=== PATIENT | female | born 1950 | race Caucasian/White ===

== ENCOUNTER → 2016-12-13 | Outpatient (CLI) | payer BC ==
--- NOTE | 2016-12-14 07:42 | MAMMOGRAPHY REPORT ---
BILATERAL DIGITAL SCREENING MAMMOGRAM WITH CAD: 12/13/2016 CLINICAL HISTORY: Routine screening. Patient has no complaints. TECHNIQUE: Current study was also evaluated with a Computer Aided Detection (CAD) system. Bilatera l CC and MLO views were obtained. COMPARISON: Comparison is made to exams dated: 11/08/2015 mammogram, 10/29/2014 mammogram, 10/05/2013 m ammogram, 08/24/2011 mammogram - [facility], 03/18/2008, and 11/25/2002 mammogram - [facility]. BREAST COMPOSITION: There are scattered areas of fibroglandular density in both breasts. FINDINGS: No suspicious masses, calcifications, or areas of architectural distortion are noted in e ither breast. There has been no significant interval change compared to prior exams. Scattered bilat eral benign-appearing calcifications are not significantly changed. IMPRESSION: ACR BI-RADS CATEGORY 2: BENIGN There is no mammographic evidence of malignancy. A 1 year screening mammogram is recommended. The p atient will receive written notification of the results. Approximately 10% of breast cancers are not detected with mammography. A negative mammographic repor t should not delay biopsy if a clinically suggestive mass is present. Kiesha Thomas M.D. /:12/13/2016 14:57:58 Building Inspector: Doretha TURNER)(), [facility] letter sent: Normal 1/2 BI-RADS Code: ACR BI-RADS Category 2: Benign
== END | disposition home or self-care (01) ==
LOC: C.MAMM 09:18
PROVIDERS: ATTEND Obstetrics & Gynecology
DX: Z12.31 Encounter for screening mammogram for malignant neoplasm of breast (principal)

== ENCOUNTER → 2018-01-06 | Outpatient (CLI) | payer OTHER | END | disposition home or self-care (01) | LOC: C.MAMM 15:13 | PROVIDERS: ATTEND Family Medicine | DX: Z00.00 Encounter for general adult medical examination without abnormal findings (principal); E21.3 Hyperparathyroidism, unspecified; E83.52 Hypercalcemia ==

== ENCOUNTER 2023-07-08 07:37 | Observation (INO) ==
--- NOTE | 2023-05-30 11:11 | PAT Medication Instructions ---
Medication Instructions Date of Service May 30, 2023 Home Medications atorvastatin 40 mg tablet 40 mg PO HS levothyroxine 100 mcg tablet (Synthroid) 100 mcg PO 6XWK cholecalciferol (vitamin D3) 125 mcg (5,000 unit) tablet (Vitamin D3) 125 mcg PO QAM duloxetine 30 mg capsule,delayed release 30 mg PO HS duloxetine 60 mg capsule,delayed release 60 mg PO QAM famotidine 20 mg tablet 20 mg PO QAM fish, borage, flaxseed oils-omega 3,6,9 comb no.1 1,200 mg capsule ([place] 3-6-9) 1 cap PO QAM fluticasone propionate 50 mcg/actuation nasal spray,suspension (Flonase Allergy Relief) 1 spray intranasal HS glucosam 750 mg-chondroi 100 mg-hyalur 1.65 mg-CF borate 108 mg tablet ([facility] Air Button) 1 tab PO QAM levocetirizine 5 mg tablet 5 mg PO QAM meloxicam 7.5 mg tablet 7.5 - 15 mg PO QAM vit C 250 mg-vit E 90 mg-zinc 40 mg-copper 1 [id number] capsule (PreserVision AREDS-2) 1 tab PO BID Continue as directed levothyroxine 100 mcg tablet (Synthroid) 100 mcg PO 6XWK ASK your surgeon for instructions meloxicam 7.5 mg tablet 7.5 - 15 mg PO QAM STOP taking 2 weeks before surgery fish, borage, flaxseed oils-omega 3,6,9 comb no.1 1,200 mg capsule ([place] 3-6-9) 1 cap PO QAM glucosam 750 mg-chondroi 100 mg-hyalur 1.65 mg-CF borate 108 mg tablet ([facility] Air Button) 1 tab PO QAM vit C 250 mg-vit E 90 mg-zinc 40 mg-copper 1 [id number]-cbhepr capsule (PreserVision AREDS-2) 1 tab PO BID DO NOT take the morning of surgery cholecalciferol (vitamin D3) 125 mcg (5,000 unit) tablet (Vitamin D3) 125 mcg PO QAM levocetirizine 5 mg tablet 5 mg PO QAM Take morning of surgery With a small sip of water, OTHERWISE NOTHING TO EAT OR DRINK AFTER MIDNIGHT: duloxetine 60 mg capsule,delayed release 60 mg PO QAM famotidine 20 mg tablet 20 mg PO QAM Take evening before surgery atorvastatin 40 mg tablet 40 mg PO HS duloxetine 30 mg capsule,delayed release 30 mg PO HS fluticasone propionate 50 mcg/actuation nasal spray,suspension (Flonase Allergy Relief) 1 spray intranasal HS Other Notes If you have any questions please call us at [phone] or [phone] or [phone] or [phone]
--- NOTE | 2023-06-19 11:09 | Anesthesiology Consultation ---
Date of Service June 19, 2023 Assessment & Plan (1) Encounter for pre-operative examination: - Outpatient joint assessment: Patient is currently scheduled for inpatient pathway. If re-evaluated and patient/surgeon requests outpatient pathway, patient is acceptable candidate for outpatient joint program from anesthesia standpoint pending surgeon's office assessment of pt motivation/support/completion of same day joint program preop requirements. Chart Review Chart Review: Acceptable Risk for Surgery and Patient seen in Pre Admission Testing Teaching & Discussion Pre-Anesthesia Teaching/Discussion Notes: Instructed NPO after midnight before surgery, except medications with 15 cc of water. Medication instructions provided according to the PAT guidelines. History Surgery Operation Date: 07/08/23 08:15 Proposed Procedures p Right Unicompartment Knee Arthroplasty, vs Right Total Knee Arthroplasty - Bebo Carty DO Height/Weight Height: 5 ft 4 in Weight: 81.2 kg Allergies Allergy/AdvReac Type Severity Reaction Status Date / Time pseudoephedrine Allergy Intermediate "very Verified 05/29/23 10:03 [From Sudafed] rapid heart rate" tetracycline Allergy Unknown Unknown Verified 05/29/23 10:03 Medications Home Medications Medication Instructions Recorded Confirmed Last Taken atorvastatin 40 mg tablet 40 mg PO HS 02/20/21 05/29/23 Unknown levothyroxine 100 mcg tablet 100 mcg PO 6XWK 02/20/21 05/29/23 Unknown (Synthroid) cholecalciferol (vitamin D3) 125 125 mcg PO QAM 05/29/23 05/29/23 Unknown mcg (5,000 unit) tablet (Vitamin D3) duloxetine 30 mg capsule,delayed 30 mg PO HS 05/29/23 05/29/23 Unknown release duloxetine 60 mg capsule,delayed 60 mg PO QAM 05/29/23 05/29/23 Unknown release famotidine 20 mg tablet 20 mg PO QAM 05/29/23 05/29/23 Unknown fish, borage, flaxseed oils-omega 1 cap PO QAM 05/29/23 05/29/23 Unknown 3,6,9 comb no.1 1,200 mg capsule ([place] 3-6-9) fluticasone propionate 50 1 spray intranasal HS 05/29/23 05/29/23 Unknown mcg/actuation nasal spray,suspension (Flonase Allergy Relief) glucosam 750 mg-chondroi 100 1 tab PO QAM 05/29/23 05/29/23 Unknown mg-hyalur 1.65 mg-CF borate 108 mg tablet ([employer]) levocetirizine 5 mg tablet 5 mg PO QAM 05/29/23 05/29/23 Unknown meloxicam 7.5 mg tablet 7.5 - 15 mg PO QAM 05/29/23 05/29/23 Unknown vit C 250 mg-vit E 90 mg-zinc 40 1 tab PO BID 05/29/23 05/29/23 Unknown mg-copper 1 [id number] capsule (PreserVision AREDS-2) Past Medical History Medical History (Updated 06/19/23 @ 11:14 by Abril Espinal PA-C) Depression GERD (gastroesophageal reflux disease) controlled, stable per pt Hypothyroidism Macular degeneration Patient denies h/o stroke, seizures, heart attack, heart failure, DM, HTN, blood clots/DVTs or blood transfusions. Exercise / Class Metabolic Activity II 4-5 Yardwork/Stairs/Walk up hill (denies chest discomfort or shortness of breath with 1 FOS) Past Family History Family History Other No family history of adverse response to anesthesia Past Surgical History Surgical History History of colonoscopy History of dilatation and curettage [place] [facility] [place] due to extreme depression "they removed 3 of the 4" History of wisdom tooth extraction Past Anesthesia History No Hx of Anesthesia Complications and No Family Hx of Anesthesia Complications History of PONV No Hx of PONV and No Hx of Motion Sickness Social History Smoking Status: Never smoker Do You Dip or Chew Tobacco: No Hx Alcohol Use: Yes Alcohol type: beer and wine alcohol intake frequency: a few times a week Hx Substance Use: No substance use type: does not use Review of Systems Snoring, denies witnessed apneas. Patient denies chest pain, shortness of breath, dyspnea on exertion, fever, chills, cough, wheezing, or palpitations. Physical Exam Vital Signs Vitals BP 117/79 P 87 TEMP 98.1 SP02 100% on RA RESP 17 Physical Patient resting comfortably in chair in no acute distress, alert and oriented, responding appropriately throughout visit Full cervical extension range of motion without pain TMD 3.5 finger breadths Mallampati Score 2 Dentition: several caps/crowns, denies chipped or loose teeth, implants or bridges Lungs: normal respiratory effort. Good air movement, clear throughout to auscultation, no adventitious breath sounds Cardiac: regular rate and rhythm, no murmurs noted Carotid arteries: negative bruit bilat Lab Results Anesthesia Preop Results Results Anesthesia Widget: WBC 5.08 K/ul (4.8-10.8) 06/19/23 Hgb 14.4 g/dl (12.0-16.0) 06/19/23 Hct 42.2 % (37.0-47.0) 06/19/23 Plt 247 K/uL (130-400) 06/19/23 Na 134 mmol/L (136-145) L 06/19/23 K 3.8 mmol/L (3.5-5.1) 06/19/23 Cl 101 mmol/L (98-107) 06/19/23 CO2 28 mmol/L (21-32) 06/19/23 BUN 12 mg/dl (6-23) 06/19/23 Creat 0.72 mg/dl (0.6-1.2) 06/19/23 Glucose Level 91 mg/dl (70-99(Fasting)) 06/19/23 PT 11.0 Seconds (9.0-12.0) 06/19/23 PTT 26.2 Seconds (21.0-31.0) 06/19/23 INR 1.0 (0.9-1.1) 06/19/23 Blood Type AB Positive 06/19/23 Antibody Screen NEGATIVE 06/19/23 Testing Electrocardiogram Date: 06/19/23 NSR, rate [address] abnormality Chest X-Ray Date: 06/19/23 No acute process.
--- NOTE | 2023-07-04 06:56 | History & Physical Report ---
Date of Service July 04, 2023 Assessment & Plan (1) Right knee DJD: We will proceed with a right partial knee replacement surgery. Postoperatively she will be started on aspirin for DVT prophylaxis and kept overnight in the hospital for postop medical management. She plans to use fit for play at home upon discharge. History of Present Illness Chief Complaint: Medial compartment arthritis of the right knee. Primary Care Provider: NUZHAT Gilliam Miya is a pleasant 72-year-old female who is well known to me. She has been dealing with chronic increasing right knee pain. MRI and clinical examination were diagnostic for medial compartmental arthritis of the right knee. After failing conservative treatment, she has elected proceed with a right partial knee replacement surgery. Allergies Allergy/AdvReac Type Severity Reaction Status Date / Time pseudoephedrine Allergy Intermediate "very Verified 05/29/23 10:03 [From Sudafed] rapid heart rate" tetracycline Allergy Unknown Unknown Verified 05/29/23 10:03 Home Medications Medication Instructions Recorded Confirmed Type atorvastatin 40 mg tablet 40 mg PO HS 02/20/21 05/29/23 History levothyroxine 100 mcg tablet 100 mcg PO 6XWK 02/20/21 05/29/23 History (Synthroid) cholecalciferol (vitamin D3) 125 125 mcg PO QAM 05/29/23 05/29/23 History mcg (5,000 unit) tablet (Vitamin D3) duloxetine 30 mg capsule,delayed 30 mg PO HS 05/29/23 05/29/23 History release duloxetine 60 mg capsule,delayed 60 mg PO QAM 05/29/23 05/29/23 History release famotidine 20 mg tablet 20 mg PO QAM 05/29/23 05/29/23 History fish, borage, flaxseed oils-omega 1 cap PO QAM 05/29/23 05/29/23 History 3,6,9 comb no.1 1,200 mg capsule ([place] 3-6-9) fluticasone propionate 50 1 spray intranasal HS 05/29/23 05/29/23 History mcg/actuation nasal spray,suspension (Flonase Allergy Relief) glucosam 750 mg-chondroi 100 1 tab PO QAM 05/29/23 05/29/23 History mg-hyalur 1.65 mg-CF borate 108 mg tablet ([employer]) levocetirizine 5 mg tablet 5 mg PO QAM 05/29/23 05/29/23 History meloxicam 7.5 mg tablet 7.5 - 15 mg PO QAM 05/29/23 05/29/23 History vit C 250 mg-vit E 90 mg-zinc 40 1 tab PO BID 05/29/23 05/29/23 History mg-copper 1 [id number] capsule (PreserVision AREDS-2) Past Med/Surg History Medical History Depression GERD (gastroesophageal reflux disease) controlled, stable per pt Hypothyroidism Macular degeneration Surgical History History of colonoscopy History of dilatation and curettage History of parathyroidectomy 06/2018 @ [facility] [place] due to extreme depression "they removed 3 of the 4" History of wisdom tooth extraction Family History Other No family history of adverse response to anesthesia Social History Smoking Status: Never smoker Second Hand Exposure: No; Do You Dip or Chew Tobacco: No; Hx Alcohol Use: Yes Alcohol type: beer and wine Hx Substance Use: No Preferred Language: Bol[place]ian Communication Ability: Effective 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 Physical Exam On physical examination the right knee, she has tenderness palpation of the distal medial femoral condyle and over the medial joint line.. Constitutional WD/WN, vitals as above Eyes PERRL, conjunctivae normal, anicteric sclerae ENMT external ear and nose normal, oropharynx normal Neck trachea midline, no thyromegaly Respiratory normal respiratory effort, lungs clear to auscultation Cardiovascular RRR, no murmur, no edema Gastrointestinal (Abdomen) normal bowel sounds, soft, nontender, no hepatosplenomegaly Skin no rashes, warm and dry Psychiatric A+Ox3, euthymic affect Results & Data Results & Data Laboratory Results . Diagnostic Findings X-rays and MRI of the right knee do show medial compartmental arthritis. I do not see any chondral changes in the lateral compartment or the patellofemoral compartment.. PG Care Time/CCT Total # of Minutes Spent Total Time Spent with Patient: Total time spent is greater than 50% in coordination of care (as documented) at patient's floor/unit and/or counseling patient: Coding Level of Care Code None Diagnoses Right knee DJD M17.11
[~2023-07-08 07:37] MED LIST: ACETAMINOPHEN 500 MG TAB PO SCH; BUPIVACAINE 0.5 % 5 MG/1 ML PF 10ML VIAL ONE; DEXAMETHASONE SOD INJ 4 MG/ML VIAL ONE; FAMOTIDINE 20 MG TAB PO SCH; GABAPENTIN 300 MG CAP PO SCH; LIDOCAINE 2% 2 ML VIAL/AMP(20MG/ML) INFIL ONE; LR 500ML BOLUS, THEN 15ML/HR IV SCH; LR 60ML/HR IV SCH; MIDAZOLAM HCL 1 MG/ML 2ML VIAL ONE; ONDANSETRON INJ 2 MG/ML 2 ML VIAL ONE; ORTHO JOINT MIX INFIL SCH; PROPOFOL IV EMULSION 10 MG/ML 20 ML VIAL IV ONE; ROPIVACAINE 0.5% 5 MG/ML 30 ML VIAL ONE; TRANEXAMIC ACID 1,000 MG **IV Intra-op IV SCH; TRANEXAMIC ACID 1,000 MG **IV Pre-op IV SCH; ceFAZolin 2000MG 2,000 MG/15 ML SYR IV SCH; dexAMETHasone 4 MG TAB PO SCH; fentaNYL citrate PF 100 MCG/2 ML VIAL ONE
[2023-07-08] MEDS ORDERED: MIDAZOLAM HCL 1 MG/ML 2ML VIAL ONE (07:54)
--- NOTE | 2023-07-08 08:23 | History & Physical Bridge Note ---
Date of Service July 08, 2023 History & Physical Bridge Note I have examined the patient, reviewed the History & Physical and in the interval since the performance of the History & Physical I have noted the following changes of clinical significance: no changes noted
[2023-07-08] MEDS ORDERED: fentaNYL citrate PF 100 MCG/2 ML VIAL IV PRN (08:46)
[2023-07-08] MEDS ORDERED: ATROPINE SULFATE 0.1 MG/ML 10ML SYR IV PRN (08:46)
[2023-07-08] MEDS ORDERED: ONDANSETRON INJ 2 MG/ML 2 ML VIAL IV PRN ×2 (08:46→14:50)
[2023-07-08] MEDS ORDERED: ePHEDrine sulfate 50 MG/ML AMP IV PRN (08:46)
[2023-07-08] MEDS ORDERED: ORTHO JOINT ANESTHETIC ONE (08:56)
[2023-07-08] MEDS ORDERED: PROPOFOL IV EMULSION 10 MG/ML 20 ML VIAL IV ONE ×3 (09:33)
--- NOTE | 2023-07-08 10:41 | Operative Report ---
PG Post Operative Report Pre & Post Diagnosis Operation Date: 07/08/23 09:00 Pre-Op Diagnosis: Degenerative Joint Disease Right Knee Post-Op Diagnosis: Degenerative Joint Disease Right Knee I identified the patient and participated in the time-out.: Yes Procedure Operation Date: 07/08/23 09:00 Actual Procedures p Right Unicompartment Knee Arthroplasty(Right) - Bebo Carty DO Surgeon Bebo Carty DO Biometrics Experimentalist Bebo Crump PA-C Estimated Blood Loss 30 Findings Consistent with Post-Op Diagnosis Specimens Right femoral tibial bone Description of Procedure Implants used: I used a [employer] persona partial knee replacement system with a size 4 femur, a size E tibia, and an 8 mm polyethylene insert. On July 08, 2023 Miya arrived at [facility] for the above procedure. She was seen in the preoperative holding area and the operative extremity identified and signed. She is given a preoperative antibiotic, a regional anesthetic, and a spinal anesthetic. She was taken back the operating room and laid on the table in supine position. She was given basic sedation. The right knee was prepped and draped sterile fashion. A timeout was done. The patient and the operative extremity was properly identified. A longitudinal incision was made just medial to the patella. Dissection was taken down to the extensor mechanism. A small mid vastus arthrotomy was used. A little bit of the medial retinaculum was released. A small amount of fat pad was removed. There was no cartilage damage in the lateral compartment and the ACL was intact. There was significant arthritis in the medial compartment. A decision was made to do a partial knee replacement. The medial meniscus was excised. A proximal tibial guide was placed and the proximal tibia was resected on the medial side. The knee was then brought out full extension. A distal femoral cutting block was placed. The distal femur was then resected. The knee was then flexed. A size 4 femoral implant seem to be this best fit. The cutting block was pinned in the place. 2 peg holes were drilled. Posterior and chamfer cuts were then made. The tibia was then exposed. The tibia measured to be a size E. A tibial cutting block was then placed. The peg holes were then drilled for the tibial component. Trial components were then placed. An 8 mm polyethylene insert was trialed. The knee was brought through full range of motion and felt to be stable. All complements were then removed. The knee was then irrigated. The surrounding soft tissues were injected with 50 cc of an orthopedic pain control cocktail. The final size 4 femoral component and size E tibial component were cemented into place. Once cement had hardened an 8 mm polyethylene insert was snapped into place. The knee was brought through a full range of motion and felt to be stable. The extensor mechanism was closed with #1 Vicryl. Skin was closed with 2-0 Vicryl, 3 oh VLock, and albert. She was then placed in a soft compressive dressing. She was then transferred to a hospital bed and taken to the postanesthesia care unit in stable condition. She tolerated the procedure well. Bebo Crump PA-C, was present for the entire procedure. He was critical for patient positioning, prepping, draping, retraction exposure, wound closure and application of sterile dressing. I attest to the content of the Intraoperative Record and any orders documented therein. Any exceptions are noted below.
--- NOTE | 2023-07-08 12:27 | XRay Report ---
XR knee RT 1 or 2V routine CLINICAL HISTORY: Surgical Post Op COMPARISON STUDY: Right knee 09/13/2022. FINDINGS: Status post right knee medial unicondylar prosthesis. The hardware appears intact. Skin sta ples are in place. Small ossific densities adjacent to the medial tibial plateau likely due to expect ed postoperative change. IMPRESSION: Status post right knee medial unicondylar prosthesis. The hardware appears intact. ACT 112: Negative or not required by law. Electronically signed by: Reggie Gayle M.D. 07/08/2023 12:26 PM
--- NOTE | 2023-07-08 13:04 | Anesthesiology Progress Note ---
Date of Service July 08, 2023 Anesthesia Post Procedure Vital Signs Vital Signs: Temp Pulse Pulse Resp BP Pulse Ox O2 Del Method 07/08/23 12:45 62 15 123/77 97 Room Air 07/08/23 12:30 97.7 F 57 L 12 132/74 100 Room Air 07/08/23 11:55 58 L 12 129/75 100 Room Air 07/08/23 12:15 59 L 16 130/77 100 Room Air 07/08/23 12:05 58 L 13 123/73 100 Room Air 07/08/23 11:45 59 L 13 132/79 100 Room Air 07/08/23 11:35 60 12 121/77 100 Room Air 07/08/23 11:25 61 16 116/72 100 Room Air 07/08/23 11:15 62 13 116/70 100 Oxymask 07/08/23 11:05 64 13 114/76 100 Oxymask 07/08/23 10:57 98.2 F 62 12 135/77 99 Oxymask 07/08/23 08:33 98.1 F 77 20 163/90 H 99 Room Air O2 Flow Rate 07/08/23 12:45 07/08/23 12:30 07/08/23 11:55 07/08/23 12:15 07/08/23 12:05 07/08/23 11:45 07/08/23 11:35 07/08/23 11:25 07/08/23 11:15 5 07/08/23 11:05 5 07/08/23 10:57 5 07/08/23 08:33 Transfer of Care Handoff Completed per policy Notes Mental Status: alert / awake / arousable and participated in evaluation Patient Amnestic to Procedure: Yes Nausea / Vomiting: adequately controlled Pain: adequately controlled Airway Patency, RR, SpO2: stable & adequate BP & HR: stable & adequate Hydration State: stable & adequate Neuraxial Anesthesia: was administered and sensory block is resolving Anesthetic Complications: no major complications apparent and Pt Satisfied with anesthetic care
[2023-07-08] MEDS ORDERED: oxyCODONE HCL IR 5 MG TAB (IMMEDIATE RELEASE) PO PRN (14:50)
[2023-07-08] MEDS ORDERED: bisacodyL 10 MG SUPP PR PRN (14:50)
[2023-07-08] MEDS ORDERED: MAGNESIUM HYDROXIDE SUSP 30 ML UDC PO PRN (14:50)
[2023-07-08] MEDS ORDERED: METOCLOPRAMIDE HCL INJ 5 MG/ML 2 ML VIAL IV PRN (14:50)
[2023-07-08] MEDS ORDERED: HYDROmorphone INJ 0.5 MG/0.5 ML SYR IV PRN (14:50)
[2023-07-08] MEDS ORDERED: NALOXONE HCL 0.4 MG/1 ML VIAL/CARP IV PRN (14:50)
[2023-07-08] MEDS: KETOROLAC TROMETHAMINE 15 MG/ML VIAL IV SCH ×2 (16:56→20:47)
[2023-07-08] MEDS: ACETAMINOPHEN 500 MG TAB PO SCH ×2 (16:56→22:29)
[2023-07-08] MEDS: SODIUM CHLORIDE 0.9% 1,000 ML IV SCH (16:57)
[2023-07-08] MEDS: ceFAZolin 2000MG 2,000 MG/15 ML SYR IV SCH (16:57)
[2023-07-08] MEDS: ASPIRIN 81 MG ECTAB PO SCH (20:44)
[2023-07-08] MEDS: DOCUSATE SODIUM 100 MG CAP PO SCH (20:44)
[2023-07-08] MEDS ORDERED: LEVOTHYROXINE SODIUM 100 MCG TABLET PO SCH (21:00)
[2023-07-08] MEDS ORDERED: DULoxetine HCL 30 MG CAP PO SCH (21:00)
[2023-07-08] MEDS ORDERED: SENNA 8.6 MG TAB PO SCH (21:00)
[2023-07-08] MEDS ORDERED: FLUTICASONE PROPIONATE NA SPR 16 GM BTL SCH (21:00)
[2023-07-08] MEDS ORDERED: ATORVASTATIN 40 MG TAB PO SCH (21:00)
[2023-07-09] MEDS: ceFAZolin 2000MG 2,000 MG/15 ML SYR IV SCH (00:26)
[2023-07-09] MEDS: SODIUM CHLORIDE 0.9% 1,000 ML IV SCH (01:47)
[2023-07-09] MEDS: KETOROLAC TROMETHAMINE 15 MG/ML VIAL IV SCH ×2 (04:03→08:51)
[2023-07-09] MEDS: ACETAMINOPHEN 500 MG TAB PO SCH (05:34)
[2023-07-09] MEDS ORDERED: LEVOTHYROXINE SODIUM 100 MCG TABLET PO SCH (06:30)
--- NOTE | 2023-07-09 07:08 | Orthopedic Progress Note ---
Date of Service July 09, 2023 Assessment & Plan (1) Status post right partial knee replacement: Overall she is doing very well. She is not having much pain in the right knee. She will be seen by physical therapy today for ambulation and range of motion exercises. She is on aspirin for DVT prophylaxis. She can be discharged home later today. She will follow-up with orthopedics in 2 weeks. Cira Holliday was seen and examined at bedside this morning. Overall she is doing very well. She is not having much pain in the right knee. She has been up and ambulating to the bathroom. She has no complaints.. Review of Systems All systems reviewed & are unremarkable except as noted in HPI & below. Physical Exam On physical examination of the right knee, the dressing is clean and dry. Her leg is out full extension. She has active dorsiflexion plantarflexion of her right ankle.. Results & Data Results & Data Laboratory Results . Diagnostic Findings Postoperative x-rays of the right knee show the prosthesis to be in anatomic alignment without any evidence of fracture complication, or loosening.. PG Care Time/CCT Total # of Minutes Spent Total Time Spent with Patient: Total time spent is greater than 50% in coordination of care (as documented) at patient's floor/unit and/or counseling patient: Coding Level of Care Code 25999 Post Operative Follow-Up Diagnoses Status post right partial knee replacement Z96.651
--- NOTE | 2023-07-09 07:09 | Discharge Summary ---
Date of Service July 09, 2023 Admission HPI (Per Admitting) Miya is a pleasant 72-year-old female who is well known to me. She has been dealing with chronic increasing right knee pain. MRI and clinical examination were diagnostic for medial compartmental arthritis of the right knee. After failing conservative treatment, she has elected proceed with a right partial knee replacement surgery. Admission Exam (Per Admitting) On physical examination the right knee, she has tenderness palpation of the distal medial femoral condyle and over the medial joint line.. Principal Diagnosis Same as "Discharge Diagnosis" noted below under Discharge Instructions. Discharge Exam On physical examination of the right knee, the dressing is clean and dry. Her leg is out full extension. She has active dorsiflexion plantarflexion of her right ankle.. Discharge Data Procedures Performed Operation Date: 07/08/23 09:00 Actual Procedures p Right Unicompartment Knee Arthroplasty(Right) - Bebo Carty DO Ordered Studies 07/08/23 05:00 US - OR guided needle placemen Routine Hospital Course (1) Status post right partial knee replacement: On July 08, 2023 Miya arrived at [facility] and underwent a right partial knee replacement without complication. She had a spinal anesthetic. Postoperatively she was started on aspirin for DVT prophylaxis and transferred to the general orthopedic floors. Her hospital course was uneventful. On postop day #1, her vital signs were stable and her pain was well controlled. She was able to participate well with physical therapy doing ambulation and range of motion exercises. She was then discharged home. She will follow-up with orthopedics in 2 weeks. PG Care Time/CCT Total # of Minutes Spent Total Time Spent with Patient: Total time spent is greater than 50% in coordination of care (as documented) at patient's floor/unit and/or counseling patient: Discharge Plan Discharge Items Patient Disposition: Home - Home Health Services Reason For Visit: POST OP Discharge Diagnosis: Right partial knee replacement Activity: Per Instructions section Non-emergency contact: Surgeon Call non-emergency contact if: your wound has increased redness and your wound has increased drainage Follow-up/Referrals: Denita Prince CRNP [Primary Care Provider] - Diet: Regular Addtl Attending Provider Instructions: Activity and Therapy Recommendations: * If you are using [facility] then therapy will be provided at your home until they feel you have accomplished all of your goals. * If you are using [facility] then Physical Therapy will be provided until they feel you are ready to start Outpatient Physical Therapy. * If you are not using home therapy then Outpatient Physical Therapy should start about 3-5 days from your day of surgery. Therapy will last about 6-10 weeks * It is important not to put a pillow under your knee when you are relaxing or sleeping. It is just as important to make sure you are getting your knee perfectly straight as it is to regain your knee bend. * You were shown a series of exercises in the hospital. Do these exercises three times each day including the exercises you were shown in physical therapy. * Get up and walk several times each day. For the first four weeks, try not to stand or walk for more than one hour at a time. If you do stand or walk for more than one hour, you will not hurt anything, but your leg will likely swell. * As you feel comfortable, you may change from the walker or crutches to a cane and then to independent walking. Medications: * Narcotic You will likely be sent home from the hospital with a prescription for the narcotic pain medication that worked best throughout your stay. * Aspirin Most patients will be required to take Aspirin 81mg twice a day for 6 weeks after surgery. This is obtained [id number] and a prescription is not necessary. * Cefadroxil take the antibiotic twice a day for 10 days to help prevent infections. * Other medications may be prescribed for specific circumstances. If you have any questions, please call the office at . * Resume previous home medications unless otherwise instructed TEDs/Elastic Stockings: The white elastic stockings help limit swelling and prevent blood clots from forming in your legs.~ The more you wear them, the more they work. Wear them for six weeks. Dressing Care: The dressing can be changed after physical therapy on postop day #1. Daily dry dressing changes for a few days, especially if the incision is still draining some. If the incision is not draining then you may leave the albert open to air. If there is a little bit of drainage or if the albert are getting stuck on your clothing then cover the incision with a dry dressing. The albert will be removed at your 2 week follow-up appointment. Showering: You may shower 5 days from the day of surgery as long as the incision is no longer draining. You may shower with the albert exposed. Let soapy water run over the albert and pat them dry. Do not scrub or soak the incision. Things To Watch For: * Drainage from the incision site that occurs more than one week after your surgery. * Increased redness at the incision site. * Fever above 102 degrees Fahrenheit. * Unusual chest pain or shortness of breath. * Call [facility] at with any of the above problems Follow-Up Visit: Follow-up with Dr. Carty's PA (Bebo Crump) 2-3 weeks after your day of surgery. He will remove your albert and answer any questions. If you have any additional questions or concerns, Dr Carty is usually in the office at the same time and will be available An appointment was probably scheduled when you signed-up for surgery in the office. If you have any questions call Office Instructions: More detailed instructions as well as Frequently Asked Questions were provided in a folder by our office when you signed-up for surgery. Please review these instructions when you get home. If you have any further questions or concerns, please feel free to call the office at [phone] Pending Studies at Discharge: No Stand-Alone Forms: My [facility] Medications and DC Order Prescriptions: New oxycodone 5 mg Tablet 5 mg PO Q4H PRN (Reason: pain) Qty: 30 0RF cefadroxil 500 mg capsule 500 mg PO BID 10 Days Qty: 20 0RF aspirin 81 mg Tablet,Delayed Release (Dr/Ec) 81 mg PO BID 42 Days Qty: 0 0RF Continued atorvastatin 40 mg tablet 40 mg PO HS levothyroxine [Synthroid] 100 mcg tablet 100 mcg PO [id number] Patient Comments: takes every am, none on sundays meloxicam 7.5 mg tablet 7.5 - 15 mg PO QAM MDD 2 pills Rx Instructions: With meals if possible. duloxetine 30 mg Capsule,Delayed Release(Dr/Ec) 30 mg PO HS duloxetine 60 mg Capsule,Delayed Release(Dr/Ec) 60 mg PO QAM PreserVision AREDS-2 250-90-40-1 mg Capsule 1 tab PO BID cholecalciferol (vitamin D3) [Vitamin D3] 125 mcg (5,000 unit) Tablet 125 mcg PO QAM [place] 3-6-9 1,200 mg Capsule 1 cap PO QAM famotidine 20 mg Tablet 20 mg PO QAM fluticasone propionate [Flonase Allergy Relief] 50 mcg/actuation [place],Suspension 1 spray INTRANASAL HS Rx Instructions: administer into each nostril Move Free Joint Health 750 mg-100 mg- 1.65 mg-108 mg Tablet 1 tab PO QAM levocetirizine 5 mg Tablet 5 mg PO QAM Admission Data Admit Date/Time: 07/08/23 11:02 Attending Provider: Bebo Carty Admit Provider: Bebo Carty Primary Care Provider: Denita Prince
[2023-07-09] MEDS ORDERED: dexAMETHasone 4 MG TAB PO SCH (08:00)
[2023-07-09] MEDS: DOCUSATE SODIUM 100 MG CAP PO SCH (08:51)
[2023-07-09] MEDS: ASPIRIN 81 MG ECTAB PO SCH (08:51)
[2023-07-09] MEDS ORDERED: MULTIVITAMIN TAB PO SCH (09:00)
[2023-07-09] MEDS ORDERED: CETIRIZINE HCL 10 MG TABLET PO SCH (09:00)
[2023-07-09] MEDS ORDERED: FAMOTIDINE 20 MG TAB PO SCH (09:00)
[2023-07-09] MEDS ORDERED: DULoxetine HCL 60 MG CAP PO SCH (09:00)
== END 2023-07-09 10:48 | disposition home health service (06) ==
LOC: 3W 07:37 → ASU 07:37

== ENCOUNTER 2024-10-11 21:24 | Observation (INO) ==
--- OUTSIDE RECORDS SUMMARY | 2024-10-11 21:29 | External Medical Summary | Continuity of Care Document ---
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 Name Role Phone Judy Miller Primary Care P camilla [phone] [id number] Date(s): 10/05/24 - 10/05/24 [facility] [address] [id number] [facility] Medicine [address] [place] [address] Encounter Diagnosis Myofascial pain(Discharge Diagnosis) - 10/05/24 Discharge Disposition: Home or Self Care Attending Physician: MD Montalvo Gregory G Allergies, Adverse Reactions, Alerts Substance Criticality Severity Reaction Reaction Severity Status tetracycline dizziness Active Sudafed rapid heart beat Act deana Immunizations Given and Recorded Vaccine Date Status Refusal Reason influenza virus vaccine, inactivated 1 06/25/24 Gi derian influenza virus vaccine, inactivated 06/28/23 Mahendra rded influenza virus vaccine, inactivated 09/14/21 Give n influenza virus vaccine, inactivated 07/20/20 Give n influenza virus vaccine, inactivated 07/14/19 Give n influenza virus vaccine, inactivated 06/16/18 Give n influenza virus vaccine, inactivated 06/18/17 Give n influenza virus vaccine, inactivated 07/26/16 Give n influenza virus vaccine, inactivated 07/21/15 Give n influenza virus vaccine, inactivated 07/09/13 Give n SARS-CoV-2 (COVID-19) mRNA-vacc - [id number] 05/28/24 Recorded SARS-CoV-2 (COVID-19) mRNA-vacc - [id number] 06/24/23 Recorded RSV vaccine preF3, recombinant 08/26/23 Recorded RSV Vaccine Unspecified 07/29/23 Recorded SARS-CoV-2 mRNA (Pfizer 12+) bivalent 04/19/23 Rec orded SARS-CoV-2 mRNA (tozinameran 5y-11y) 05/16/22 Mahendra rded SARS-CoV-2 mRNA (tozinameran 5y-11y) 01/05/22 Mahendra rded SARS-CoV-2 mRNA (tozinameran 5y-11y) 06/06/21 Mahendra rded SARS-CoV-2 (COVID-19) ChAdOx1 vaccine 11/02/20 Rec orded SARS-CoV-2 (COVID-19) ChAdOx1 vaccine 09/11/20 Rec orded SARS-CoV-2 (COVID-19) mRNA BNT-162b2 vax 2, 3 10/12/20 Recorded SARS-CoV-2 (COVID-19) mRNA BNT-162b2 vax 4 10/12/20 Recorded pneumococcal 23-valent vaccine 07/12/20 Given tetanus/diphtheria/pertuss, acel (Tdap) 07/12/20 G iven zoster vaccine, inactivated 5 06/16/18 Given zoster vaccine, inactivated 12/31/17 Given pneumococcal 13-valent vaccine 12/31/17 Given tetanus toxoids-diphtheria, Td (Adult) 07/26/16 Gi derian zoster vaccine live 07/26/16 Given 1Result Comment: Shayy August Lpn 2Result Comment: 2021-09-22: Historical information-source unspecified 3Result Comment: 2021-09-22: Historical information-source unspecified duplicate 4Result Comment: 2022-09-13: Historical information-source unspecified 5Result Comment: [id number] Medications atorvastatin 40 mg oral tablet Start: 10/18/23 5:25:00 PM EST, 1 tab, PO, Daily, Disp# 90 tab, Refills: 3, Pharmacy: [id number] Start Date: 10/18/23 Status: Ordered DULoxetine 30 mg oral delayed release capsule Start: 04/16/24 4:10:00 PM EDT, 1 cap, PO, Daily, Disp# 90 cap, Refills: 3, Pharmacy: [facility]/pharmacy #[id number] Start Date: 04/16/24 Stop Date: 04/11/25 Status: Ordered DULoxetine 60 mg oral delayed release capsule Start: 04/16/24 4:10:00 PM EDT, 1 cap, PO, Daily, Disp# 90 cap, Refills: 3, Pharmacy: [facility]/pharmacy #[id number] Start Date: 04/16/24 Status: Ordered levothyroxine 100 mcg (0.1 mg) oral tablet Start: 11/07/23 5:01:00 PM EST, 1 tab, PO, Daily, Disp# 90 tab, Refills: 3, Pharmacy: [id number] Start Date: 11/07/23 Status: Ordered meloxicam 7.5 mg oral tablet Start: 01/30/24 3:46:00 PM EDT, 1 tab, PO, Daily Start Date: 01/30/24 Status: Ordered methocarbamol 500 mg oral tablet Start: 07/15/24 8:18:00 AM EST, 1 tab, PO, q8h, Disp# 90 tab, Refills: 3, Pharmacy: [id number] Start Date: 07/15/24 Status: Ordered multivitamin Start: 04/03/11 8:12:00 AM EDT, PO, Daily, tab Start Date: 04/03/11 Status: Ordered omega-3 polyunsaturated fatty acids 1000 mg oral capsule Start: 04/03/11 8:12:00 AM EDT, 1 cap, PO, Daily, cap Start Date: 04/03/11 Status: Ordered Osteo Bi-Flex 250 mg-200 mg oral tablet Start: 07/03/22 1:38:00 PM EDT, 2 tab, PO, Daily Start Date: 07/03/22 Status: Ordered PreserVision AREDS 2 oral capsule Start: 12/11/22 9:57:00 AM EDT, 2 caps daily Start Date: 12/11/22 Status: Ordered RABEprazole 20 mg oral delayed release tablet TAKE 1 TABLET BY MOUTH EVERY DAY Start Date: 08/07/24 Status: Ordered triamcinolone 0.1% topical cream Start: 01/30/24 4:01:00 PM EDT, 1 appl, topical, bid, Disp# 30 g, Refills: 1, To right mid back BID PRN, Pharmacy: [facility]/pharmacy #[id number] Start Date: 01/30/24 Status: Ordered Vitamin D3 2000 intl units oral capsule Start: 04/03/11 8:12:00 AM EDT, 1 cap, PO, Daily, cap Start Date: 04/03/11 Status: Ordered Mental Status 10/05/24 Barriers to Learning one year None evide nt Mandatory Health Literacy Documentation Yes Health Literacy Communication Barriers N ever Primary Language Bulgarian Problem List Condition Confirmation Course Effective Dates Status Health Status Informant Androgenetic alopecia Confirmed Active Anxiety Confirmed Active Arthritis Confirmed Active Cough Confirmed Active Macular degeneration 1 Confirmed Active Disorder of patellofemoral joint Confirmed Active Epidermal cyst Confirmed Active FH: colon cancer in first degree relative <60 years old 2 Confirmed Active History of actinic keratoses Confirmed Active Hyperlipidemia Confirmed Active Hyperparathyroidism Confirmed Active Hyperplastic polyp of large intestine Confirmed Active Adult hypothyroidism Confirmed Active Knee pain, right Confirmed Active Lentigo Confirmed Active MDD (major depressive disorder) Confirmed Active Memory impairment Confirmed Active Myofascial pain Confirmed Active Osteopenia of femoral neck, bilateral Confirmed Active Prediabetes Confirmed Active Rosacea Confirmed Active Seborrheic keratoses Confirmed Active Solar elastosis Confirmed Active Tubular adenoma of colon Confirmed Active 1wet and dry 2Daughter at age 24 Diagnosis Diagnosis Type Effective Dates Health Status Cl inical Service Informant Myofascial pain Discharge Diagnosis 10/05/24 Procedures Procedure Date Related Diagnosis Body Site Status EGD - esophagogastroduodenoscopy 1, 2 12/30/23 Completed Knee replacement 3 07/08/23 Comple maria guadalupe Shave biopsy and cauterization of skin 06/12/23 Completed Mammogram 4 11/12/22 Completed Mammogram 5 11/12/22 Completed Knee X-ray 6 09/13/22 Completed X-ray of left foot 7 05/25/22 Comp leted Mammogram - screening 8 10/25/21 C ompleted DEXA - dual energy X-ray absorptiometry 9 10/24/20 Completed Mammography 10 10/24/20 Completed DIAGNOSTIC COLONOSCOPY 02/23/20 Co mpleted Shave biopsy of skin 07/06/19 Comp leted Shave biopsy and cauterizati on of skin 11 06/22/19 Completed Mammogram - screening 12 12/13/16 Completed Colonoscopy 13, 14 06/01/16 Comple maria guadalupe Mammogram - screening 15 11/08/15 Completed R great toe x-ray 16 07/21/15 Comp leted Shave biopsy of skin 05/10/15 Comp leted Mammogram 17 10/29/14 Completed Mammogram 10/05/13 Completed mammo-[employer] 06/09/11 Completed right shoulder x-ray 10/28/09 Comp leted dexa-[facility] 08/30/09 Completed RUQ ultra 02/12/08 Completed MRI R knee-611 12/24/05 Completed Dilatation and curettage 1982 Completed right foot x-ray Complete d 1A) Duodenum, biopsy: No significant pathologic changes. COMMENT: Features of celiac sprue are not identified. There is no evidence of dysplasia or carcinoma. B) Stomach, antrum, biopsy: Reactive gastropathy. COMMENT: There is no evidence of intestinal metaplasia, dysplasia or carcinoma. An H. pylori immunostain performed at [facility] is negative. C) Gastroesophageal junction, biopsy: Fragments of mildly inflamed squamous and gastric-type mucosa. COMMENT: There is no evidence of intestinal metaplasia, dysplasia, or carcinoma. D) Esophagus, biopsy: No significant pathologic changes. COMMENT: There is no evidence of intestinal metaplasia, increased eosinophils, dysplasia or carcinoma. 2- Z-line irregular, 36 cm from the incisors. Biopsied. 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 - Normal mid esophagus. Biopsied. - 1 cm hiatal hernia. - Normal antrum. Biopsied. - Duodenal erosion. Biopsied. - The examination was otherwise normal. 3PARTIAL KNEE REPLACEMENT RIGHT 4Impression: There is no mammographic evidence of malignancy. A 1 year screening mammogram is recommended. 5[facility], [address] [place] [address], [address] [place], [address] Mammography Report Patient: RICHARD WOODWARD AAdmit Date: 11/12/22 MR#: [id number]: [facility] Acct ID:[id number]: Date: [address] [place] [address] Zip: [place] [address] Age: 72Location: MAMMO Sex: FRoom/Bed: Att Phy: Denita Prince CRNPDiagnosis: E28.39,Z12.31,ASYMPTOMATIC Shelbie Phy: El Mc M.D.Service Date: 11/12/22 Fam Phy: Interpreting Phy: Kiesha Thomas MD Admit Phy: Ordering Phy: Denita Prince CRNP DICTATED BY: Kiesha Thomas MD cc: El Mc M.D.; Denita Prince CRNP~ BILATERAL DIGITAL SCREENING MAMMOGRAM TOMOSYNTHESIS WITH SYNTHETIC 2D WITH CAD: 11/12/2022 CLINICAL HISTORY: Routine screening. Patient has no complaints. TECHNIQUE: Bilateral CC and MLO tomosynthesis images including synthesized 2D images (Intelligent 2D) were obtained. Current study was also evaluated with a Computer Aided Detection (CAD) system. COMPARISON: Comparison is made to exams dated: 10/25/2021 mammogram, 10/24/2020 mammogram, 12/13/2016 mammogram, 11/08/2015 mammogram, 10/29/2014 mammogram, and 10/05/2013 mammogram - [facility]. BREAST COMPOSITION: There are scattered areas of fibroglandular density. FINDINGS: No suspicious masses, calcifications, or areas of architectural distortion are noted in either breast. There has been no significant interval change compared to prior exams. Scattered bilateral benign-appearing calcifications are not significantly changed. Bilateral asymmetries are stable, including an asymmetry in the right superior breast middle depth on MLO images which has the appearance of normal fibroglandular tissue on corresponding tomosynthesis images and appears similar to prior examsincluding the 2014 exam. IMPRESSION: ACR BI-RADS CATEGORY 2: BENIGN There is no mammographic evidence of malignancy. A 1 year screening mammogram is recommended.(11/13/2023) The patient will receive written notification of the results. Some breast cancers are not detected with mammography. A negative mammographic report should not delay biopsy if a clinically suggestive mass is present. Kiesha Thomas M.D. /:11/12/2022 16:47:12 Cement Mason Maintenance: RT Radha(Luis Angel)(M), [facility] letter sent: Normal 1/2 BI-RADS Code: ACR BI-RADS Category 2: Benign Signed By:Kiesha Thomas MD11/12/22 164 Created: 11/12/22 1311 Transcribed: 11/12/221646Transcriptionist: DERIAN The status of this report is Signed. Draft = Not yet reviewed or approved by Medical Physician. Signed = Reviewed and approved by Medical Physician. 6Impression: No acute fracture. Mild right knee osteoarthritis. Suspected small joint effusion. 7No evidence of acute bony injury. Palpable lump in the medial arch may reflect degenerative changesin the midfoot. 8ACR BI-RADS CATEGORY 2: BENIGN There is no mammographic evidence of malignancy. A 1 year screening mammogram is recommended.(10/26/2022) 9AP Spine L1-L4 -0.5 DualFemur Total Mean -0.2 Z-Score of -0.3 10There is no mammographic evidence of malignancy. A 1 year screening mammogram is recommended. 11right cheek 12WNL - 1yr 13Four 3 to 5 mm polyps in the cecum. Removed with cold snare 14repeat colonoscopy 3 years due to large size of polyps 15WNL-1yr 16no fx or disloc 17No malignancy. One year screening recommended. Social History Social History Type Response Smoking Status Never smoked cigaret lance Sex Female Sex Representation Female (finding) Ortho Outpt Note * MD Selvin, Dank Walls: PERFORM Event Display: Ortho Outpt Note Authored Date: [id number] Name:RICHARD WOODWARD Patient Number:[id number] :1950 Date of Service:10/05/2024 CHIEF COMPLAINT: Chronic myofascial pain. HISTORY OF PRESENT ILLNESS: The patient eddie 74-year-old female who had trigger point injection >6 weeks ago and reports that they worked very well.She isrequesting trigger point today. PHYSICAL EXAMINATION:Pleasant female seated comfortably she has taut bands on the right side of her body in the cervical paraspinal area in the trapeziussuperior and inferior rhomboid muscles. IMPRESSION: Trigger point injections, chronic myofascial pain. RECOMMENDATIONS: The patient requested trigger point injections. PROCEDURE NOTE: Verbal consent was obtained. She was positively identified via name via timeoutfor safety. Areas were pressure marked and confirmed with medical personnel in the room, cleansedwith alcohol wipe and injected after negative aspiration with a 25-gauge 1-1/2 inch needle into thethe right cervical paraspinalmuscle,right proximal trapezius muscle,right superior rhomboid muscle, and rightmiddle rhomboid muscle. Injections were well- tolerated. Importance of stretching out that area was reviewed with her today. Follow-up in 6 weeks. Electronic Signature on File CC: Judy Do DO [address] [place] [address] Electronically Reviewed/Signed by: Dank Montalvo MD Author Signature Dt/Tm:10/05/2024 09:46 AM Risk Management Professional of Orthopaedics & Rehabilitation and Physical Medicine & Rehabilitation [facility] Patient Care team information Care Team Personnel Name: Keith Do DO, Mariana Annette Position: Physician - Family Med Member Role: Primary Care Provider Address: [address] [place] [address] [place] Care Team Related Persons Name: STACY ACOSTA Name: DINORAH WOODWARD Name: DINORAH WOODWARD
--- NOTE | 2024-10-11 21:44 | Emergency Department Note ---
ED Provider Note NAME: RICHARD WOODWARD AGE: 74 SEX: F : 1950 ARRIVES VIA: Walk-In INFORMANT: [Patient][, ] ED PROVIDER(S): [Angel Ch MD] CHIEF COMPLAINT: Chest pain MEDICAL DECISION MAKING: Patient presents due to concern for chest pains. Centralized nonradiating. IV was established and blood work was obtained. Patient was ordered a Xopenex treatment Tylenol as well as benzonatate. BioFire also obtained. Chest x-ray by my read does not show obvious pneumonia or pneumothorax. No show white count 12. Discussion w/ other healthcare providers: [None] Prior /Outside records reviewed: [none] Differential diagnosis: Cardiac ischemia, aortic dissection, pulmonary embolism, pneumothorax, pneumonia, pericarditis, myocarditis, GERD, cholecystitis, pancreatitis, musculoskeletal, as well as other pathologies were considered. Diagnostics, as interpreted by me: ECG: Normal sinus rhythm, rate of 80, normal intervals, normal axis slight elevation in V1 and V2 with Q waves noted anteriorly with slight depressions in the anterior lateral leads. Also depressions in aVF and lead II. Slightly change compared to comparison from 2022. Cardiac monitoring: An order was placed for continuous cardiac monitoring. The monitor shows a rate of [] with [] rhythm. [Patient was placed on pulse oximetry] Medical decision rules: [none] Imaging studies: [I informally interpreted the patient's [] with formal report to follow.] [] HPI: Patient presents due to concern for chest pain. The patient reports that she began have a cough this morning developed chest pain may have around 2-30 this afternoon. Centralized nonradiating does not worsen with cough. Patient dates the cough is productive with discolored sputum. No blood. No leg swelling or calf pain no history of DVT or PE. The patient denies any history of heart or lung disease. Patient is a non-smoker. No known sick contacts or any recent travel. No one else with similar symptoms that she has been around. Patient did take some Zicam and was taking her regular medications but given that the chest pain persisted presented here for evaluation and treatment. Patient states that the pain does not have any associated nausea vomiting or diaphoresis. No diarrhea. PAST MEDICAL HISTORY: [See Below] PAST SURGICAL HISTORY: [See Below] SOCIAL HISTORY: [See Below] HOME MEDICATIONS: [See Below] ALLERGIES: [See Below] VITALS: [See Below] PHYSICAL EXAMINATION: GENERAL: NAD, non-toxic. Wearing glasses and a mask. EYE EXAM: Normal conjunctiva. PERRL, no anisocoria and EOM's grossly intact w/o pain. OROPHARYNX: Moist mucus membranes, grossly normal dentition. NECK: Trachea midline, no stridor. LUNGS: Clear to auscultation. Normal chest wall mechanics. HEART: NSR, no MRG. ABDOMEN: Abdomen soft, non-tender, no masses, no rebound or guarding. BACK: No CVA TTP. SKIN: No rashes and no bruising. UPPER EXTREMITIES: Upper extremities are grossly normal. LOWER EXTREMITIES: Grossly normal, no edema. Negative Homans' sign bilaterally. NEURO EXAM: A&O x3, cranial nerves II-XII grossly intact, normal speech, moves all 4 extremities. Past Med/Surg History Problem List Osteoarthritis of right knee Dysphagia Fatigue Sinus drainage Chronic cough Status post right partial knee replacement (~06/2023) Encounter for pre-operative examination Arthritis of carpometacarpal (CMC) joint of both thumbs Neck pain on right side Medical History GERD (gastroesophageal reflux disease) Hypothyroidism Macular degeneration Depression Surgical History History of colonoscopy History of dilatation and curettage History of wisdom tooth extraction History of parathyroidectomy Family History Daughter Colorectal cancer Other No family history of adverse response to anesthesia No family history of bleeding disorder Social History Smoking Status: Never smoker Second Hand Exposure: No; Do You Dip or Chew Tobacco: No; Hx Alcohol Use: Yes Alcohol type: beer and wine Hx Substance Use: No Preferred Language: [place] Rican Communication Ability: Effective 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 Beliefs That Will Affect Care: None marital status: Current Living Situation: Spouse and Family Current Living Situation Comment: Lives with , daughter, son in law and granddaughter current occupational status: retired Feels Safe at Home: Yes Assistive Devices: Cane and Walker Allergies Allergies Allergy/AdvReac Type Severity Reaction Status Date / Time pseudoephedrine Allergy Intermediate "very Verified 06/22/24 10:44 [From Sudafed] rapid heart rate" tetracycline Allergy Unknown Unknown Verified 06/22/24 10:44 Home Meds Home Medications Medication Instructions Recorded Confirmed atorvastatin 40 mg tablet 40 mg PO HS 02/20/21 06/22/24 levothyroxine 100 mcg tablet 100 mcg PO 6XWK 02/20/21 06/22/24 (Synthroid) cholecalciferol (vitamin D3) 125 125 mcg PO QAM 05/29/23 06/22/24 mcg (5,000 unit) tablet (Vitamin D3) duloxetine 30 mg capsule,delayed 30 mg PO HS 05/29/23 06/22/24 release duloxetine 60 mg capsule,delayed 60 mg PO QAM 05/29/23 06/22/24 release famotidine 20 mg tablet 20 mg PO QAM 05/29/23 06/22/24 fish, borage, flaxseed oils-omega 1 cap PO QAM 05/29/23 06/22/24 3,6,9 comb no.1 1,200 mg capsule ([place] 3-6-9) glucosam 750 mg-chondroi 100 1 tab PO QAM 05/29/23 06/22/24 mg-hyalur 1.65 mg-CF borate 108 mg tablet ([facility]) levocetirizine 5 mg tablet 5 mg PO QAM 05/29/23 06/22/24 vit C 250 mg-vit E 90 mg-zinc 40 1 tab PO BID 05/29/23 06/22/24 mg-copper 1 vj-dokuxy-bxduzo capsule (PreserVision AREDS-2) fluticasone propionate 50 1 spray intranasal HS PRN 11/19/23 06/22/24 mcg/actuation nasal spray,suspension (Flonase Allergy Relief) Women's Daily Vitamin PO 11/28/23 06/22/24 methocarbamol 500 mg tablet 500 mg PO TID 11/28/23 06/22/24 glucosamine CVp-T2-Kghlwoklf 1 tab PO DAILY 04/13/24 06/22/24 juanita 1,500 mg-400 unit-100 mg tablet (Osteo Bi-Flex (5-Loxin)) pantoprazole 40 mg tablet,delayed 40 mg PO DAILY 04/13/24 06/22/24 release Previous Rx's Medication Instructions Recorded amoxicillin 500 mg tablet 2,000 mg (4 x 500 mg) PO ONCE #4 04/10/24 tabs benzonatate 100 mg capsule 100 mg PO BID #60 caps 05/25/24 meloxicam 7.5 mg tablet 7.5 mg PO QAM PRN pain #30 tabs 09/24/24 Results & Data (ED) Vital Signs Vital Signs - 24 hr 10/11/24 21:25 10/11/24 21:38 10/11/24 21:38 Temperature 36.0 C L 36.7 C Temperature Source Temporal Artery Scan Oral Pulse Rate 90 Pulse Rate [Right Finger] 79 Respiratory Rate 20 17 Respiratory Effort / Characteristics Non-Labored Spontaneous Respiratory Depth Normal Normal Blood Pressure 179/82 H Blood Pressure [Left Arm] 169/91 H Blood Pressure Mean 114 Blood Pressure Mean [Left Arm] 117 Blood Pressure Position Sitting Pulse Oximetry 99 98 Oxygen Delivery Method Room Air Room Air Sepsis Recent Fever Within 48 Hours No Sepsis New/Unexplained Change in Mental Status No Sepsis Action Taken by Nursing No Action Required 10/11/24 21:49 10/11/24 21:49 Temperature Temperature Source Pulse Rate 81 84 Pulse Rate [Right Finger] Respiratory Rate 17 Respiratory Effort / Characteristics Respiratory Depth Blood Pressure Blood Pressure [Left Arm] Blood Pressure Mean Blood Pressure Mean [Left Arm] Blood Pressure Position Pulse Oximetry 98 Oxygen Delivery Method Room Air Sepsis Recent Fever Within 48 Hours Sepsis New/Unexplained Change in Mental Status Sepsis Action Taken by Nursing Laboratory Data 10/11/24 21:44 10/11/24 21:44 Lab Results 10/11/24 Range/Units 21:44 WBC 12.12 H (4.8-10.8) K/ul RBC 4.97 (4.20-5.40) M/uL Hgb 15.2 (12.0-16.0) g/dl Hct 43.8 (37.0-47.0) % MCV 88.1 (80.0-100.0) fL MCH 30.6 (25.0-34.0) pg MCHC 34.7 (32.0-36.0) g/dL RDW Std Deviation 38.5 (36.4-46.3) fL RDW Coeff of Noel 12.0 (11.5-14.5) % Plt Count 292 (130-400) K/uL MPV 9.6 (9.4-12.4) fL Immature Gran % (Auto) 0.4 % Neut % (Auto) 73.4 % Lymph % (Auto) 14.7 % [place]pie % (Auto) 10.5 % Eos % (Auto) 0.8 % Baso % (Auto) 0.2 % Neut # (Auto) 8.90 H (1.40-6.50) K/uL Lymph # (Auto) 1.78 (1.20-3.40) K/uL [place]pie # (Auto) 1.27 H (0.11-0.59) K/uL Eos # (Auto) 0.10 (0.00-0.50) K/uL Baso # (Auto) 0.02 (0.00-0.20) K/uL Immature Gran # (Auto) 0.05 (0.01-0.20) K/uL Administered Medications Discontinued Medications Acetaminophen (Acetaminophen 500 Mg Tab) 1,000 mg PO NOW STA Stop: 10/11/24 21:43 Last Admin: 10/11/24 22:10 Dose: 1,000 mg Documented By: SHANNON Benzonatate (Benzonatate 100 Mg Capsule) 100 mg PO NOW ONE Stop: 10/11/24 21:43 Last Admin: 10/11/24 22:10 Dose: 100 mg Documented By: SHANNON Sodium Chloride (Nss) 500 mls @ 999 mls/hr IV .Q31M ONE Stop: 10/11/24 22:12 Last Admin: 10/11/24 22:13 Dose: 999 mls/hr Documented By: SHANNON Levalbuterol HCl (Levalbuterol 1.25 Mg/3 Ml Neb) 1.25 mg NEB NOW STA Stop: 10/11/24 21:43 Last Admin: 10/11/24 22:12 Dose: 1.25 mg Documented By: SHANNON Discharge Plan Visit Data Chief Complaint: Chest Pain Stated Complaint: CHEST PAIN, COUGH, TENDONITIS ED Provider: Angel Ch Forms Stand Alone Forms: [facility] [employer] Prescriptions Prescriptions: No Action amoxicillin 500 mg tablet 2,000 mg PO ONCE Qty: 4 3RF Rx Instructions: 4 tabs 1 hour prior to procedure benzonatate 100 mg capsule 100 mg PO BID Qty: 60 1RF meloxicam 7.5 mg tablet 7.5 mg PO QAM PRN (Reason: pain) Qty: 30 1RF Rx Instructions: With meals if possible. atorvastatin 40 mg tablet 40 mg PO HS levothyroxine [Synthroid] 100 mcg tablet 100 mcg PO 6XWK Patient Comments: takes every am, none on sundays methocarbamol 500 mg tablet 500 mg PO TID Women's Daily Vitamin PO [id number] serr [Osteo Bi-Flex (5-Loxin)] 1,500-400-100 mg-unit-mg tablet 1 tab PO DAILY Rx Instructions: give after food/meal pantoprazole 40 mg tablet,delayed release (DR/EC) 40 mg PO DAILY duloxetine 30 mg Capsule,Delayed Release(Dr/Ec) 30 mg PO HS duloxetine 60 mg Capsule,Delayed Release(Dr/Ec) 60 mg PO QAM PreserVision AREDS-2 250-90-40-1 mg Capsule 1 tab PO BID cholecalciferol (vitamin D3) [Vitamin D3] 125 mcg (5,000 unit) Tablet 125 mcg PO QAM [place] 3-6-9 1,200 mg Capsule 1 cap PO QAM famotidine 20 mg Tablet 20 mg PO QAM [facility] 750 mg-100 mg- 1.65 mg-108 mg Tablet 1 tab PO QAM levocetirizine 5 mg Tablet 5 mg PO QAM fluticasone propionate [Flonase Allergy Relief] 50 mcg/actuation spray,suspension 1 spray INTRANASAL HS PRN Rx Instructions: administer into each nostril Referrals Referrals: Judy Miller DO [Primary Care Provider] -
[2024-10-11 22:03] LABS: Basophils # (auto) 0.02 K/uL (0.00-0.20); Basophils % (auto) 0.2 %; Eosinophils % (auto) 0.8 %; Hematocrit (blood only) 43.8 % (37.0-47.0); Hemoglobin 15.2 g/dl (12.0-16.0); Immature Granulocytes # (auto) 0.05 K/uL (0.01-0.20); Immature Granulocytes % (auto) 0.4 %; Lymphocytes # (auto) 1.78 K/uL (1.20-3.40); Lymphocytes % (auto) 14.7 %; Mean Corpuscular Hemoglobin 30.6 pg (25.0-34.0); Mean Corpuscular Hgb Conc 34.7 g/dL (32.0-36.0); Mean Corpuscular Volume 88.1 fL (80.0-100.0); Mean Platelet Volume 9.6 fL (9.4-12.4); Monocytes # (auto) 1.27 K/uL (0.11-0.59); Monocytes % (auto) 10.5 %; Neutrophils % (auto) 73.4 %; Platelet Count 292 K/uL (130-400); RDW Standard Deviation 38.5 fL (36.4-46.3); Red Blood Count 4.97 M/uL (4.20-5.40); White Blood Count 12.12 K/ul (4.8-10.8)
[2024-10-11] MEDS: BENZONATATE 100 MG CAPSULE PO ONE (22:10)
[2024-10-11] MEDS: ACETAMINOPHEN 500 MG TAB PO STA (22:10)
[2024-10-11] MEDS: LEVALBUTEROL 1.25 MG/3 ML NEB NEB STA (22:12)
[2024-10-11] MEDS: SODIUM CHLORIDE 0.9% 500 ML IV ONE (22:13)
[2024-10-11 22:29] LABS: Albumin Globulin Ratio 1.6 (0.9-2); BUN Creatinine Ratio 26.6 (10-20); Bilirubin,Total 0.5 mg/dl (0.2-1.0); Calcium 9.3 mg/dl (8.6-10.3); Creatinine Clr Calc Pharmacy 81.1 ml/min; Globulin 3.1 gm/dl (2.5-4.0); Potassium 3.7 mmol/L (3.5-5.1); Total Protein 8.1 gm/dl (6.0-8.3)
[2024-10-11 22:35] LABS: Prothrombin Time 10.4 Seconds (9.0-12.0)
[2024-10-11 22:36] LABS: Partial Thromboplastin Ratio 0.9; Partial Thromboplastin Time 23 Seconds (21-31); Troponin I High Sensitivity 3.6 pg/ml (0-14)
[2024-10-11 23:20] LABS: Adenovirus PCR Not Detected (NotDetected); Bordetella parapertussis PCR Not Detected (NotDetected); Bordetella pertussis PCR Not Detected (NotDetected); Chlamydia pneumoniae PCR Not Detected (NotDetected); Coronavirus 229E PCR Not Detected (NotDetected); Coronavirus CoV-2 (COVID19)PCR Not Detected (NotDetected); Coronavirus HKU1 PCR Not Detected (NotDetected); Coronavirus NL63 PCR Not Detected (NotDetected); Coronavirus OC43PCR Not Detected (NotDetected); Human Metapneumovirus PCR Not Detected (NotDetected); Influenza A (H1 2009) PCR DETECTED (NotDetected); Influenza B PCR Not Detected (NotDetected); Mycoplasma pneumoniae PCR Not Detected (NotDetected); Parainfluenza Virus 1 PCR Not Detected (NotDetected); Parainfluenza Virus 2 PCR Not Detected (NotDetected); Parainfluenza Virus 3 PCR Not Detected (NotDetected); Parainfluenza Virus 4 PCR Not Detected (NotDetected); Respiratory Syncytial VirusPCR Not Detected (NotDetected); Rhinovirus/Enterovirus PCR Not Detected (NotDetected)
[2024-10-11 23:49] LABS: Magnesium 2.2 mg/dl (1.7-2.4)
--- NOTE | 2024-10-11 23:56 | History & Physical Report ---
Date of Service October 11, 2024 Assessment & Plan (1) Influenza A virus subtype H1 2009 pandemic strain present: (2) Bronchitis: (3) Abnormal EKG: (4) Upper airway cough syndrome: Plan The patient is a 74-year-old female with a past medical history including chronic cough, upper airway cough syndrome, depression, allergic symptoms, hyperlipidemia, B12 deficiency, hypothyroidism, osteoarthritis, muscle spasm, macular degeneration, GERD, vitamin D deficiency, and status post recent injection into right knee by orthopedic surgery. She presents to the emergency department with a more severe cough, and is noted significant substernal chest burning, unrelieved by her usual medications. In the emergency department, troponin test was normal, EKG was concerning for ST elevations in leads V1 V2, and BioFire testing was positive for influenza A 2009 pandemic strain. She was referred for evaluation for admission for ongoing cardiac assessment, and treatment of influenza. #Influenza A 2009 pandemic strain/bronchitis- Start Tamiflu 75 mg p.o. twice daily Azithromycin 500 mg IV daily Methylprednisolone 60 mg IV now, then 40 mg IV every 12 hours DuoNebs every 2 hours as needed Tessalon Perles 100 mg p.o. 3 times daily as needed #Abnormal EKG/chest pain with burning- EKG with ST elevations V1 V2, with normal troponin of 3.6 Given aspirin 324 mg now, and then 81 every morning The patient will be admitted to telemetry for serial cardiac enzymes, serial EKG's, cardiac rhythm monitoring and a 2-D echocardiogram with Dopplers. Started on heparin drip without bolus in the ED, and will continue Consult cardiology Potassium 3.7, will give Klor-Con 20 mill equivalents p.o. now NSS + KCl 20 mill equivalents at 100 mL/h x 1 L Serial CBC with differential, renal function panel and magnesium level #Chronic medical conditions: Hypothyroidism-continue levothyroxine Depression-continue duloxetine B12 deficiency-continue supplement Hyperlipidemia-increase atorvastatin from 40 to 80 mg GERD-change rabeprazole to pantoprazole per formulary no change, giving a dose of IV tonight Muscle spasm/osteoarthritis-continue methocarbamol, joint supplements. hold meloxicam History of Present Illness Chief Complaint: The patient presents to the emergency department with acute onset of harsh cough, with substernal chest burning that began earlier in the day today, and has progressed throughout the day. Primary Care Provider: Judy Do DO The patient is a 74-year-old female with a past medical history including chronic cough, upper airway cough syndrome, depression, allergic symptoms, hyperlipidemia, B12 deficiency, hypothyroidism, osteoarthritis, muscle spasm, macular degeneration, GERD, vitamin D deficiency, and status post recent injection into right knee by orthopedic surgery. She presents to the emergency department with a more severe cough, and is noted significant substernal chest burning, unrelieved by her usual medications. In the emergency department, troponin test was normal, EKG was concerning for ST elevations in leads V1 V2, and BioFire testing was positive for influenza A 2009 pandemic strain. She was referred for evaluation for admission for ongoing cardiac assessment, and treatment of influenza. Allergies Allergy/AdvReac Type Severity Reaction Status Date / Time pseudoephedrine Allergy Intermediate "very Verified 06/22/24 10:44 [From [facility]] rapid heart rate" tetracycline Allergy Unknown Unknown Verified 06/22/24 10:44 Home Medications Medication Instructions Recorded Confirmed Type atorvastatin 40 mg tablet 40 mg PO HS 02/20/21 10/11/24 History cholecalciferol (vitamin D3) 125 125 mcg PO QAM 05/29/23 10/11/24 History mcg (5,000 unit) tablet (Vitamin D3) duloxetine 30 mg capsule,delayed 30 mg PO HS 05/29/23 10/12/24 History release duloxetine 60 mg capsule,delayed 60 mg PO QAM 05/29/23 10/12/24 History release glucosam 750 mg-chondroi 100 1 tab PO QAM 05/29/23 10/12/24 History mg-hyalur 1.65 mg-CF borate 108 mg tablet ([facility] [employer] [facility]) vit C 250 mg-vit E 90 mg-zinc 40 1 tab PO BID 05/29/23 10/12/24 History mg-copper 1 bp-ahimjz-arryqk capsule (PreserVision AREDS-2) methocarbamol 500 mg tablet 500 mg PO Q8 11/28/23 10/12/24 History amoxicillin 500 mg tablet 2,000 mg (4 x 500 mg) PO ONCE #4 04/10/24 10/11/24 Rx tabs meloxicam 7.5 mg tablet 7.5 mg PO QAM PRN pain #30 tabs 09/24/24 10/11/24 Rx cyanocobalamin (vitamin B-12) 500 500 mcg PO QAM 10/11/24 10/11/24 History mcg tablet (Vitamin B-12) afihgcdqvjx-edb-vlfgbabeb-vitC 1 cap PO QAM 10/11/24 10/12/24 History capsule (Glucosamine Complex-MSM capsule) levothyroxine 100 mcg tablet 100 mcg PO DAILYBB 10/11/24 10/12/24 History hoauechj-hpm-hsugv ac 400 1 tab PO QAM 10/11/24 10/11/24 History mcg-calcium carb 500 mg-vit K1 20 mcg tablet rabeprazole 20 mg tablet,delayed 20 mg PO DAILY 10/11/24 10/12/24 History release krill 500 mg-omega 3 115 mg-dha 30 1 cap PO QAM 10/12/24 10/12/24 History mg-epa 64 tz-jfumzyq-mlgfu capsule (MegaRed Gile-3 Krill Oil) Past Med/Surg History Problem List (Updated 10/12/24 @ 01:56 by Calvin Lozano MD) Upper airway cough syndrome Abnormal EKG Bronchitis Influenza A virus subtype H1 2009 pandemic strain present Osteoarthritis of right knee Dysphagia Fatigue Sinus drainage Chronic cough Status post right partial knee replacement (~06/2023) Encounter for pre-operative examination Arthritis of carpometacarpal (CMC) joint of both thumbs Neck pain on right side Medical History GERD (gastroesophageal reflux disease) Hypothyroidism Macular degeneration Depression Surgical History History of colonoscopy History of dilatation and curettage History of wisdom tooth extraction History of parathyroidectomy Family History Daughter Colorectal cancer Other No family history of adverse response to anesthesia No family history of bleeding disorder Social History Smoking Status: Never smoker Second Hand Exposure: No; Do You Dip or Chew Tobacco: No; Hx Alcohol Use: Yes Alcohol type: beer and wine Hx Substance Use: No Preferred Language: Nepali Communication Ability: Effective 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 Beliefs That Will Affect Care: None marital status: Current Living Situation: Spouse and Family Current Living Situation Comment: Lives with , daughter, son in law and granddaughter current occupational status: retired Feels Safe at Home: Yes Assistive Devices: Cane and Walker Review of Systems Review of Systems: The patient denies palpitations, lower extremity swelling, sore throat, fevers, chills, sweats, nausea, vomiting, diarrhea , constipation, abdominal pain, pelvic pain, blood in urine or stool, dysuria, urinary frequency or urgency, lightheadedness, dizziness, headache, memory loss, loss of consciousness, rash, abnormal bruising or bleeding, imbalance, focal weakness, numbness or tingling in arms or legs, generalized arthralgias or myalgias, back or neck pain, or night sweats. The review of systems is otherwise negative other than for that already noted above, and at least 10 systems have been reviewed. Physical Exam Physical Exam: The patient is awake, alert and oriented 3, well developed and well nourished, normocephalic and atraumatic, lying in bed and in no acute distress. HEENT--PERRL, EOMI, mucous membranes and oropharynx dry. Neck--supple. No JVD. No bruits. Thyroid normal, trachea midline, no adenopathy. Heart--normal S1 and S2. No murmurs, rubs or gallops. Lungs--clear bilaterally, no respiratory distress, no accessory muscle use. Abdomen--normal bowel sounds and soft. Nontender. Nondistended, no hernias or masses, no organomegaly. Extremities--no cyanosis or clubbing. No edema. There are good distal pulses b/l. Dermatologic--normal skin turgor, normal color, no abnormal lymph nodes, no rash. Neurologic--cranial nerves II through XII grossly intact. Rheumatologic--normal range of motion. Psychiatric--normal affect. Results & Data Results & Data Vital Signs (Past 12 Hours) Vital Signs Temp Pulse Pulse Resp BP BP Pulse Ox 10/11/24 21:49 84 10/11/24 21:49 81 17 98 10/11/24 21:38 36.7 C 79 17 169/91 H 10/11/24 21:38 98 10/11/24 21:25 36.0 C L 90 20 179/82 H 99 O2 Del Method 10/11/24 21:49 10/11/24 21:49 Room Air 10/11/24 21:38 10/11/24 21:38 Room Air 10/11/24 21:25 Room Air Laboratory Results Laboratory Results WBC 12.12 K/ul (4.8-10.8) H 10/11/24 21:44 RBC 4.97 M/uL (4.20-5.40) 10/11/24 21:44 Hgb 15.2 g/dl (12.0-16.0) 10/11/24 21:44 Hct 43.8 % (37.0-47.0) 10/11/24 21:44 MCV 88.1 fL (80.0-100.0) 10/11/24 21:44 MCH 30.6 pg (25.0-34.0) 10/11/24 21:44 MCHC 34.7 g/dL (32.0-36.0) 10/11/24 21:44 RDW Std Deviation 38.5 fL (36.4-46.3) 10/11/24 21:44 RDW Coeff of Noel 12.0 % (11.5-14.5) 10/11/24 21:44 Plt Count 292 K/uL (130-400) 10/11/24 21:44 MPV 9.6 fL (9.4-12.4) 10/11/24 21:44 Immature Gran % (Auto) 0.4 % 10/11/24 21:44 Neut % (Auto) 73.4 % 10/11/24 21:44 Lymph % (Auto) 14.7 % 10/11/24 21:44 [place] % (Auto) 10.5 % 10/11/24 21:44 Eos % (Auto) 0.8 % 10/11/24 21:44 Baso % (Auto) 0.2 % 10/11/24 21:44 Neut # (Auto) 8.90 K/uL (1.40-6.50) H 10/11/24 21:44 Lymph # (Auto) 1.78 K/uL (1.20-3.40) 10/11/24 21:44 [place] # (Auto) 1.27 K/uL (0.11-0.59) H 10/11/24 21:44 Eos # (Auto) 0.10 K/uL (0.00-0.50) 10/11/24 21:44 Baso # (Auto) 0.02 K/uL (0.00-0.20) 10/11/24 21:44 Immature Gran # (Auto) 0.05 K/uL (0.01-0.20) 10/11/24 21:44 PT 10.4 Seconds (9.0-12.0) 10/11/24 21:44 INR 1.0 (0.9-1.1) 10/11/24 21:44 APTT 23 Seconds (21-31) 10/11/24 21:44 PTT Ratio 0.9 10/11/24 21:44 Sodium 134 mmol/L (136-145) L 10/11/24 21:44 Potassium 3.7 mmol/L (3.5-5.1) 10/11/24 21:44 Chloride 98 mmol/L (98-107) 10/11/24 21:44 Carbon Dioxide 28 mmol/L (21-32) 10/11/24 21:44 Anion Gap 8 (3-11) 10/11/24 21:44 BUN 17 mg/dl (6-23) 10/11/24 21:44 Creatinine 0.64 mg/dl (0.6-1.2) 10/11/24 21:44 Est Cr Clr Drug Dosing 81.1 ml/min 10/11/24 21:44 eGFR 93.84 10/11/24 21:44 BUN/Creatinine Ratio 26.6 (10-20) H 10/11/24 21:44 Glucose 110 mg/dl (70-99(Fasting)) H 10/11/24 21:44 Calcium 9.3 mg/dl (8.6-10.3) 10/11/24 21:44 Magnesium 2.2 mg/dl (1.7-2.4) 10/11/24 21:44 Total Bilirubin 0.5 mg/dl (0.2-1.0) 10/11/24 21:44 AST 24 U/L (13-39) 10/11/24 21:44 ALT 34 U/L (7-52) 10/11/24 21:44 Alkaline Phosphatase 103 U/L (34-104) 10/11/24 21:44 Troponin I High Sens 3.6 pg/ml (0-14) 10/11/24 21:44 Total Protein 8.1 gm/dl (6.0-8.3) 10/11/24 21:44 Albumin 5.0 gm/dl (3.4-5.0) 10/11/24 21:44 Globulin 3.1 gm/dl (2.5-4.0) 10/11/24 21:44 Albumin/Globulin Ratio 1.6 (0.9-2) 10/11/24 21:44 Lipase 105 U/L (11-82) H 10/11/24 21:44 Nasal Influ A H1 2009 PCR DETECTED (NotDetected) A 10/11/24 21:43 Adenovirus (PCR) Not Detected (NotDetected) 10/11/24 21:43 B. pertussis DNA (PCR) Not Detected (NotDetected) 10/11/24 21:43 B.parapertussis DNA PCR Not Detected (NotDetected) 10/11/24 21:43 C. pneumoniae DNA (PCR) Not Detected (NotDetected) 10/11/24 21:43 Coronavirus OC43 (PCR) Not Detected (NotDetected) 10/11/24 21:43 Coronavirus HKU1 (PCR) Not Detected (NotDetected) 10/11/24 21:43 Coronavirus 229E (PCR) Not Detected (NotDetected) 10/11/24 21:43 SARS-CoV-2 (PCR) Not Detected (NotDetected) 10/11/24 21:43 Coronavirus NL63 (PCR) Not Detected (NotDetected) 10/11/24 21:43 Human Metapneumovir PCR Not Detected (NotDetected) 10/11/24 21:43 Influenza Type B (PCR) Not Detected (NotDetected) 10/11/24 21:43 M. pneumoniae (PCR) Not Detected (NotDetected) 10/11/24 21:43 Parainfluenza 1 (PCR) Not Detected (NotDetected) 10/11/24 21:43 Parainfluenza 2 (PCR) Not Detected (NotDetected) 10/11/24 21:43 Parainfluenza 3 (PCR) Not Detected (NotDetected) 10/11/24 21:43 Parainfluenza 4 (PCR) Not Detected (NotDetected) 10/11/24 21:43 RSV (PCR) Not Detected (NotDetected) 10/11/24 21:43 Entero/Rhino (PCR) Not Detected (NotDetected) 10/11/24 21:43 Impressions Chest X-Ray 10/11/24 21:42 Exam(s): XR CXR 1 VIEW EXAM: XR Chest, 1 View CLINICAL HISTORY: Reason for exam: Chest pain, nonspecific. TECHNIQUE: Frontal view of the chest. COMPARISON: Prior chest x-ray from October 10, 2023. FINDINGS: Lungs: Mild to moderate peribronchial thickening of the central lower lobe bronchi with increased interstitial opacities in the lower lobes.. No consolidation. Pleural space: Unremarkable. No pneumothorax. Heart: Unremarkable. No cardiomegaly. Mediastinum: Unremarkable. Normal mediastinal contour. Bones/joints: Unremarkable. No acute fracture. IMPRESSION: Bronchitis which may be of infectious or inflammatory etiologies. No consolidation or pleural effusion. Electronically signed by: Sarah Causey MD 10/12/24 01:15 AM Code Status & VTE Plan Code Status Full code VTE Prophylaxis Plan VTE Prophylaxis will be ordered: Yes PG Care Time/CCT Total # of Minutes Spent Total Time Spent with Patient: Total time spent is greater than 50% in coordination of care (as documented) at patient's floor/unit and/or counseling patient: Coding Level of Care Code 67824 INT INP/OBS CARE 3/75MIN Diagnoses Influenza A virus subtype H1 2009 pandemic strain present J10.1 Bronchitis J40 Abnormal EKG R94.31 Upper airway cough syndrome R05.8
[2024-10-12] MEDS: ASPIRIN CHEW 324 MG PO STA (00:10)
[2024-10-12] MEDS: PANTOprazole 40 MG/10 ML SYR IV ONE (00:11)
[2024-10-12] MEDS: methylPREDNISolone 125 MG/2 ML VIAL IV STA (00:11)
[2024-10-12] MEDS: ATORVASTATIN 40 MG TAB PO STA (00:11)
[2024-10-12] MEDS: OSELTAMIVIR PHOSPHATE 75 MG CAP PO STA (00:39)
[2024-10-12] MEDS: POTASSIUM CHLORIDE CRTAB 20 MEQ TABCR PO STA (00:39)
[2024-10-12] MEDS: HEPARIN 25000 UNIT/500 ML 25,000 UNITS/500 ML BAG IV SCH (00:40)
[2024-10-12] MEDS: Heparin IV Adult Wt-Based Low-Dose *NO* INITIAL Bolus Protocol IV STA (00:42)
[2024-10-12] MEDS: NSS + 20MEQ KCL 20 MEQ/1,000 ML BAG IV SCH (00:56)
--- NOTE | 2024-10-12 01:16 | XRay Report ---
Exam(s): XR CXR 1 VIEW EXAM: XR Chest, 1 View CLINICAL HISTORY: Reason for exam: Chest pain, nonspecific. TECHNIQUE: Frontal view of the chest. COMPARISON: Prior chest x-ray from October 10, 2023. FINDINGS: Lungs: Mild to moderate peribronchial thickening of the central lower lobe bronchi with increased interstitial opacities in the lower lobes.. No consolidation. Pleural space: Unremarkable. No pneumothorax. Heart: Unremarkable. No cardiomegaly. Mediastinum: Unremarkable. Normal mediastinal contour. Bones/joints: Unremarkable. No acute fracture. IMPRESSION: Bronchitis which may be of infectious or inflammatory etiologies. No consolidation or pleural effusion. Electronically signed by: Sarah Causey MD 10/12/24 01:15 AM
[2024-10-12] MEDS ORDERED: ALBUT/IPRATROP 3MG/0.5MG NEB 3 ML VIAL NEB PRN (01:58)
[2024-10-12] MEDS ORDERED: ACETAMINOPHEN 325 MG TAB PO PRN (02:33)
[2024-10-12] MEDS: METHOCARBAMOL 500 MG TABLET PO SCH (05:31)
[2024-10-12] MEDS: LEVOTHYROXINE SODIUM 100 MCG TABLET PO SCH (05:32)
[2024-10-12 07:41] LABS: Basophils # (auto) 0.01 K/uL (0.00-0.20); Basophils % (auto) 0.1 %; Hematocrit (blood only) 39.9 % (37.0-47.0); Hemoglobin 13.6 g/dl (12.0-16.0); Immature Granulocytes # (auto) 0.03 K/uL (0.01-0.20); Immature Granulocytes % (auto) 0.3 %; Lymphocytes # (auto) 0.67 K/uL (1.20-3.40); Lymphocytes % (auto) 7.1 %; Mean Corpuscular Hemoglobin 29.9 pg (25.0-34.0); Mean Corpuscular Hgb Conc 34.1 g/dL (32.0-36.0); Mean Corpuscular Volume 87.7 fL (80.0-100.0); Mean Platelet Volume 9.7 fL (9.4-12.4); Monocytes # (auto) 0.26 K/uL (0.11-0.59); Monocytes % (auto) 2.7 %; Neutrophils # (auto) 8.53 K/uL (1.40-6.50); Neutrophils % (auto) 89.8 %; Platelet Count 266 K/uL (130-400); Red Blood Count 4.55 M/uL (4.20-5.40)
[2024-10-12 07:58] LABS: Albumin Level 4.3 gm/dl (3.4-5.0); BUN Creatinine Ratio 22.8 (10-20); Calcium 9.4 mg/dl (8.6-10.3); Creatinine Clr Calc Pharmacy 89.3 ml/min; Magnesium 2.1 mg/dl (1.7-2.4); Phosphorus 4.2 mg/dl (2.5-4.9); Potassium 4.6 mmol/L (3.5-5.1)
[2024-10-12] MEDS ORDERED: methylPREDNISolone 10 mg/mL (For Ped Dose < 7mg) IV SCH (08:00)
[2024-10-12] MEDS: FLUTICASONE PROPIONATE NA SPR 16 GM BTL NAE SCH (08:05)
[2024-10-12] MEDS: CEROVITE ADV FORMULA TAB PO SCH (08:06)
[2024-10-12] MEDS: FAMOTIDINE 20 MG TAB PO SCH (08:06)
[2024-10-12] MEDS: methylPREDNISolone 40 MG in SYRINGE 0 ML IV SCH (08:06)
[2024-10-12] MEDS: ASPIRIN 81 MG ECTAB PO SCH (08:06)
[2024-10-12] MEDS: CETIRIZINE HCL 10 MG TABLET PO SCH (08:07)
[2024-10-12] MEDS: PANTOprazole 40 MG TAB PO SCH (08:07)
[2024-10-12] MEDS: OSELTAMIVIR PHOSPHATE 75 MG CAP PO SCH (08:07)
[2024-10-12] MEDS: DULoxetine HCL 60 MG CAP PO SCH (08:07)
--- NOTE | 2024-10-12 08:34 | Electrocardiogram Report ---
Test Reason : Blood Pressure : */* mmHG Vent. Rate : 80 BPM Atrial Rate : 80 BPM P-R Int : 136 ms QRS Dur : 76 ms QT Int : 366 ms P-R-T Axes : 31 14 51 degrees QTcB Int : 422 ms Normal sinus rhythm Possible Old Septal infarct Diffuse Minor Nonspecific ST abnormality Abnormal ECG When compared with ECG of 19-Jun-2023 11:31, Borderline Criteria for Septal infarct is now Present Confirmed by Nathan Turpin ([id number]) on 10/12/2024 8:33:53 AM Referred By: REFERRED SELF Confirmed By: Nathan Turpin
[2024-10-12] MEDS: AZITHROMYCIN 500 MG in SODIUM CHLORIDE 0.9% 250 ML IV SCH (08:39)
[2024-10-12] MEDS ORDERED: GLUCOSAMINE D3 BOSWELLIA SERR PO SCH (09:00)
[2024-10-12] MEDS ORDERED: NON-FORMULARY MEDICATION (Glucosam-Chond-Hyalu-Cf Borate [Move Free Joint Health] 750 mg-1 PO SCH (09:00)
[2024-10-12] MEDS ORDERED: AZITHROMYCIN 500 MG VIAL IV SCH (09:00)
[2024-10-12] MEDS ORDERED: [UNRECOGNIZED DRUG - OTHER] PO SCH (09:00)
--- NOTE | 2024-10-12 09:15 | XCELERA ---
[id number]
[2024-10-12 10:11] LABS: Troponin I High Sensitivity 2.3 pg/ml (0-14)
--- NOTE | 2024-10-12 13:49 | Electrocardiogram Report ---
Test Reason : Blood Pressure : */* mmHG Vent. Rate : 90 BPM Atrial Rate : 90 BPM P-R Int : 148 ms QRS Dur : 68 ms QT Int : 336 ms P-R-T Axes : 27 14 38 degrees QTcB Int : 411 ms Normal sinus rhythm Diffuse Minor Nonspecific ST abnormality Abnormal ECG When compared with ECG of 11-Oct-2024 21:54, Criteria for Septal infarct are no longer Present Confirmed by Nathan Turpin ([id number]) on 10/12/2024 1:48:30 PM Referred By: REFERRED SELF Confirmed By: Nathan Turpin
--- NOTE | 2024-10-12 14:42 | Discharge Summary ---
Discharge Summary Date of Service October 12, 2024 Principal Dx & Hospital Course #1 = Principal Diagnosis (1) Influenza A virus subtype H1 2009 pandemic strain present: (2) Bronchitis: (3) Abnormal EKG: (4) Upper airway cough syndrome: Plan The patient is a 74-year-old female with a past medical history including chronic cough, upper airway cough syndrome, depression, allergic symptoms, hyperlipidemia, B12 deficiency, hypothyroidism, osteoarthritis, muscle spasm, macular degeneration, GERD, vitamin D deficiency, and status post recent injection into right knee by orthopedic surgery. She presents to the emergency department with a more severe cough, and is noted significant substernal chest burning, unrelieved by her usual medications. In the emergency department, troponin test was normal, EKG was concerning for ST elevations in leads V1 V2, and [employer] testing was positive for influenza A 2009 pandemic strain. She was referred for evaluation for admission for ongoing cardiac assessment, and treatment of influenza. #Influenza A 2009 pandemic strain/bronchitis- Start Tamiflu 75 mg p.o. twice daily Azithromycin 500 mg IV daily Methylprednisolone 60 mg IV now, then 40 mg IV every 12 hours DuoNebs every 2 hours as needed Tessalon Perles 100 mg p.o. 3 times daily as needed #Abnormal EKG/chest pain with burning- EKG with ST elevations V1 V2, with normal troponin of 3.6 Given aspirin 324 mg now, and then 81 every morning The patient will be admitted to telemetry for serial cardiac enzymes, serial EKG's, cardiac rhythm monitoring and a 2-D echocardiogram with Dopplers. Started on heparin drip without bolus in the ED, and will continue Consult cardiology Potassium 3.7, will give Klor-Con 20 mill equivalents p.o. now NSS + KCl 20 mill equivalents at 100 mL/h x 1 L Serial CBC with differential, renal function panel and magnesium level #Chronic medical conditions: Hypothyroidism-continue levothyroxine Depression-continue duloxetine B12 deficiency-continue supplement Hyperlipidemia-increase atorvastatin from 40 to 80 mg GERD-change rabeprazole to pantoprazole per formulary no change, giving a dose of IV tonight Muscle spasm/osteoarthritis-continue methocarbamol, joint supplements. hold meloxicam Admission HPI Per Admitting Provider The patient is a 74-year-old female with a past medical history including chronic cough, upper airway cough syndrome, depression, allergic symptoms, hyperlipidemia, B12 deficiency, hypothyroidism, osteoarthritis, muscle spasm, macular degeneration, GERD, vitamin D deficiency, and status post recent injection into right knee by orthopedic surgery. She presents to the emergency department with a more severe cough, and is noted significant substernal chest burning, unrelieved by her usual medications. In the emergency department, troponin test was normal, EKG was concerning for ST elevations in leads V1 V2, and BioFire testing was positive for influenza A 2009 pandemic strain. She was referred for evaluation for admission for ongoing cardiac assessment, and treatment of influenza. Discharge Plan Discharge Items Patient Disposition: Home - Self-Care Reason For Visit: CHEST PAIN, ABNORMAL EKG Discharge Diagnosis: chest pain Activity: Resume your previous activity Non-emergency contact: Primary Care Provider Call non-emergency contact if: you have any medication questions Follow-up/Referrals: Judy Miller DO [Primary Care Provider] - Diet: Regular Addtl Attending Provider Instructions: You were diagnosed with the Flu and chest pain. For your flu, recommend to continue tamiflu for an additional 5 days. While you recover, we recommend you stay at home, rest and drink plenty offluids. Take medication: Acetaminophen (Tylenol) or ibuprofen (Advil, Motrin) can help with fever, headache, and muscle aches. You can also try throat lozenges, hard candy, or warm broths for a sore throat. To limit spread, here's some basic recommendations: Continue to wash your hands often with soap and water. Continue to cover your mouth and nose: Use a tissue when you cough or sneeze. Don't share utensils, toothbrushes, or shake hands. Recommend followup with PCP in 1-2 weeks Pending Studies at Discharge: No Stand-Alone Forms: My [facility], Smoking Cessation Medications and DC Order Prescriptions: New oseltamivir [Tamiflu] 75 mg Capsule 75 mg PO BID Qty: 10 0RF Continued amoxicillin 500 mg tablet 2,000 mg PO ONCE Qty: 4 3RF Rx Instructions: 4 tabs 1 hour prior to procedure meloxicam 7.5 mg tablet 7.5 mg PO QAM PRN (Reason: pain) Qty: 30 1RF Rx Instructions: With meals if possible. atorvastatin 40 mg tablet 40 mg PO HS methocarbamol 500 mg tablet 500 mg PO Q8 duloxetine 30 mg Capsule,Delayed Release(Dr/Ec) 30 mg PO HS duloxetine 60 mg Capsule,Delayed Release(Dr/Ec) 60 mg PO QAM PreserVision AREDS-2 250-90-40-1 mg Capsule 1 tab PO BID cholecalciferol (vitamin D3) [Vitamin D3] 125 mcg (5,000 unit) Tablet 125 mcg PO QAM Move Free Joint Health 750 mg-100 mg- 1.65 mg-108 mg Tablet 1 tab PO QAM levothyroxine 100 mcg tablet 100 mcg PO DAILYBB rabeprazole 20 mg tablet,delayed release (DR/EC) 20 mg PO DAILY cyanocobalamin (vitamin B-12) [Vitamin B-12] 500 mcg Tablet 500 mcg PO QAM One-A-Day Women's 50 Plus 400 mcg-500 mg calcium-20 mcg Tablet 1 tab PO QAM Glucosamine Complex-MSM Capsule 1 cap PO QAM iwlyj-ls-2-lrv-ucd-chzbxll-ast [MegaRed [place]-3 Krill Oil] 875-001-15-64 mg Capsule 1 cap PO QAM Discharge Orders: Discharge Order (Routine); Ordered 10/12/24 Ordered By: Danny Ash Admission Data Admit Date/Time: 10/11/24 23:56 Attending Provider: Danny Ash Admit Provider: Calvin Lozano Primary Care Provider: Judy Miller Other Providers: Calvin Lozano; Nathan Turpin Hospital Stay Data Consultations 10/11/24 22:57 Consult Hospitalist Stat 10/12/24 02:33 Consult Cardiology Routine Pending Results Patient Have Any Pending Studies at Discharge: No Discharge Instructions Given to Patient (Per Discharging Provider) You were diagnosed with the Flu and chest pain. For your flu, recommend to continue tamiflu for an additional 5 days. While you recover, we recommend you stay at home, rest and drink plenty offluids. Take medication: Acetaminophen (Tylenol) or ibuprofen (Advil, Motrin) can help with fever, headache, and muscle aches. You can also try throat lozenges, hard candy, or warm broths for a sore throat. To limit spread, here's some basic recommendations: Continue to wash your hands often with soap and water. Continue to cover your mouth and nose: Use a tissue when you cough or sneeze. Don't share utensils, toothbrushes, or shake hands. Recommend followup with PCP in 1-2 weeks Coding Diagnoses Influenza A virus subtype H1 2009 pandemic strain present J10.1 Bronchitis J40 Abnormal EKG R94.31 Upper airway cough syndrome R05.8
--- NOTE | 2024-10-12 15:14 | Cardiology Consultation ---
Date of Consultation October 12, 2024 Assessment & Plan (1) Chest pain, non-cardiac: (2) Influenza A virus subtype H1 2009 pandemic strain present: (3) Bronchitis: (4) Abnormal EKG: Plan 72-year-old woman with no cardiac history admitted with influenza A and evidence of bronchitis on chest x-ray. There was concern due to her abnormal ECG, but this appears to be a stable finding. Troponin was negative. If she has no symptoms on ambulation, no further cardiac workup necessary, as her chest discomfort is almost certainly related to her underlying bronchial inflammation from influenza A. If she does have further symptoms as outpatient once her flu symptoms resolved, could consider stress study in the future. No need for heparin or aspirin. Okay for discharge from cardiac standpoint. History of Present Illness Reason for Consultation: chest pain, abnormal EKG Requesting Physician: Danny Ash Attending Physician: Danny Ash History of Present Illness 74-year-old woman with no prior cardiac history admitted with influenza A noted to have burning chest discomfort and abnormal ECG. She had moderate intensity burning midsternal chest discomfort yesterday, but this is resolved overnight and has not recurred. Troponin values 3.6 and 2.3. Initial ECG was concerning in that there was mild ST elevation in V1V2, however given virtually identical QRS morphology it appears these V leads were placed high and did not represent dynamic change. An ECG from [address] elevation in V1 only. There was also mild inferior and anterolateral ST depression on both remote and current ECGs, this is stable. Repeat ECG today appeared very similar to the 2022 ECG. Echocardiogram showed EF 55-60% with mild LVH normal wall motion, normal RVSP, no significant valvular disease. At the time my evaluation, the patient was asymptomatic and noted no chest pain, dyspnea, palpitations, or other complaints Allergies Allergy/AdvReac Type Severity Reaction Status Date / Time pseudoephedrine Allergy Intermediate "[facility]24 [facility]" tetracycline Allergy Unknown Unknown Verified 06/22/24 10:44 Home Medications Medication Instructions Recorded Confirmed Type atorvastatin 40 mg tablet 40 mg PO HS 02/20/21 10/11/24 History cholecalciferol (vitamin D3) 125 125 mcg PO QAM 05/29/23 10/11/24 History mcg (5,000 unit) tablet (Vitamin D3) duloxetine 30 mg capsule,delayed 30 mg PO HS 05/29/23 10/12/24 History release duloxetine 60 mg capsule,delayed 60 mg PO QAM 05/29/23 10/12/24 History release glucosam 750 mg-chondroi 100 1 tab PO QAM 05/29/23 10/12/24 History mg-hyalur 1.65 mg-CF borate 108 mg tablet (Move Free Privlo) vit C 250 mg-vit E 90 mg-zinc 40 1 tab PO BID 05/29/23 10/12/24 History mg-copper 1 ny-eskxcz-heqfqv capsule (PreserVision AREDS-2) methocarbamol 500 mg tablet 500 mg PO Q8 11/28/23 10/12/24 History amoxicillin 500 mg tablet 2,000 mg (4 x 500 mg) PO ONCE #4 04/10/24 10/11/24 Rx tabs meloxicam 7.5 mg tablet 7.5 mg PO QAM PRN pain #30 tabs 09/24/24 10/11/24 Rx cyanocobalamin (vitamin B-12) 500 500 mcg PO QAM 10/11/24 10/11/24 History mcg tablet (Vitamin B-12) urawjpfetum-dip-fkajmhuva-vitC 1 cap PO QAM 10/11/24 10/12/24 History capsule (Glucosamine Complex-MSM capsule) levothyroxine 100 mcg tablet 100 mcg PO DAILYBB 10/11/24 10/12/24 History dchenirx-yok-zeymm ac 400 1 tab PO QAM 10/11/24 10/11/24 History mcg-calcium carb 500 mg-vit K1 20 mcg tablet rabeprazole 20 mg tablet,delayed 20 mg PO DAILY 10/11/24 10/12/24 History release krill 500 mg-omega 3 115 mg-dha 30 1 cap PO QAM 10/12/24 10/12/24 History mg-epa 64 rw-cfchcdm-jkhbd capsule (MegaRed [place]-3 Krill Oil) oseltamivir 75 mg capsule (Tamiflu) 75 mg PO BID #10 caps 10/12/24 Rx Patient History Medical History GERD (gastroesophageal reflux disease) controlled, stable per pt Hypothyroidism Macular degeneration Depression Surgical History History of colonoscopy History of dilatation and curettage History of wisdom tooth extraction History of parathyroidectomy [place] [facility] [place] due to extreme depression "they removed 3 of the 4" Family History Daughter Colorectal cancer Other No family history of adverse response to anesthesia No family history of bleeding disorder Social History Smoking Status: Never smoker Second Hand Exposure: No; Do You Dip or Chew Tobacco: No; Hx Alcohol Use: Yes Alcohol type: wine Hx Substance Use: No Preferred Language: Hebrew Communication Ability: Effective Resource Engineer Required: No Beliefs That Will Affect Care: None marital status: Current Living Situation: Spouse Current Living Situation Comment: Lives with , daughter, son in law and granddaughter current occupational status: retired Feels Safe at Home: Yes Safety Concerns: Feels Safe At This Time Assistive Devices: None Assistive Devices Comment: occassionally uses cane Physical Exam Physical Exam: No distress. Afebrile. BP 158/89 mmHg. Pulse 88 bpm and regular. Respirations 18 unlabored. Skin: no ecchymoses or generalized lesions. HEENT: unremarkable. Neck: JVP at the clavicle at 90 degrees, no carotid bruits. Lungs: clear. Cardiac: regular rhythm, normal S1-2, no murmur. Abdomen: benign. Extremities: no edema, pulses intact. Neurologic: normal affect and conversation, nonfocal. Results & Data Vital Signs (Past 12 Hours) Vital Signs Temp Pulse Pulse Resp BP Pulse Ox O2 Del Method 10/12/24 14:47 98.2 F 88 18 158/89 H 96 10/12/24 13:00 93 H 10/12/24 11:42 98.2 F 88 18 158/89 H 96 Room Air 10/12/24 08:15 Room Air 10/12/24 07:00 98.4 F 86 20 168/98 H 95 Room Air 10/12/24 07:00 93 H Laboratory Results Troponins as per HPI. Initial white count 12, 9.5 today, normal hemoglobin and platelet count. Normal electrolytes, BUN 13, creatinine 0.57. Diagnostic Findings Chest x-ray suggested bronchitis. PG Care Time/CCT Total # of Minutes Spent Total Time Spent with Patient: Total time spent is greater than 50% in coordination of care (as documented) at patient's floor/unit and/or counseling patient: Coding Level of Care Code 51718 IN/OBS CONSULT LVL 4,60M Diagnoses Chest pain, non-cardiac R07.89 Influenza A virus subtype H1 2009 pandemic strain present J10.1 Bronchitis J40 Abnormal EKG R94.31
[2024-10-12 16:57] VITALS: BP 148/79; PULSE 78; RESP 20; TEMP 98.1; O2SAT 97
[2024-10-12] MEDS ORDERED: ATORVASTATIN 40 MG TAB PO SCH (21:00)
[2024-10-12] MEDS ORDERED: DULoxetine HCL 30 MG CAP PO SCH (21:00)
== END 2024-10-12 17:00 | disposition home or self-care (01) ==
LOC: ED 21:24 → 2S 21:24 → SUATTDRO 23:56 → 2S 10-12 02:00

== ENCOUNTER 2025-05-03 08:11 | Inpatient (IN) ==
--- NOTE | 2025-03-31 11:38 | PAT Medication Instructions ---
Medication Instructions Date of Service March 31, 2025 Home Medications Medication Instructions Recorded amoxicillin 500 mg tablet 2,000 mg (4 x 500 mg) PO ONCE #4 04/10/24 tabs meloxicam 7.5 mg tablet 7.5 mg PO QAM PRN pain #30 tabs 02/10/25 atorvastatin 40 mg tablet 40 mg PO HS duloxetine 30 mg capsule,delayed release 30 mg PO HS duloxetine 60 mg capsule,delayed release 60 mg PO QAM vit C 250 mg-vit E 90 mg-zinc 40 mg-copper 1 te-fgyvuo-gxggxs capsule (PreserVision AREDS-2) 1 tab PO BID amoxicillin 500 mg tablet 2,000 mg (4 x 500 mg) PO ONCE xefpvjibihz-nmk-kgkfgxijm-vitC capsule (Glucosamine Complex-MSM capsule) 1 cap PO QAM levothyroxine 100 mcg tablet 100 mcg PO 6XWK Women's 50 Plus Multivitamin) 1 tab PO QAM rabeprazole 20 mg tablet,delayed release (AcipHex) 20 mg PO QAM krill 500 mg-omega 3 115 mg-dha 30 mg-epa 64 gq-ylwsnan-fswxf capsule (MegaRed [place]-3 Krill Oil) 1 cap PO QAM meloxicam 7.5 mg tablet 7.5 mg PO QAM PRN pain Continue as directed levothyroxine 100 mcg tablet 100 mcg PO 6XWK amoxicillin 500 mg tablet 2,000 mg (4 x 500 mg) PO ONCE ASK your surgeon for instructions meloxicam 7.5 mg tablet 7.5 mg PO QAM PRN pain STOP taking 2 weeks before surgery (or as soon as possible if surgery is within 2 weeks) vit C 250 mg-vit E 90 mg-zinc 40 mg-copper 1 dt-tpqrfd-mjmeqj capsule (PreserVision AREDS-2) 1 tab PO BID ogagncgbxld-ylq-rsowhnsqi-vitC capsule (Glucosamine Complex-MSM capsule) 1 cap PO QAM krill 500 mg-omega 3 115 mg-dha 30 mg-epa 64 oq-jwhpbpu-jdjnh capsule (MegaRed [place]-3 Krill Oil) 1 cap PO QAM DO NOT take the morning of surgery Women's 50 Plus Multivitamin) 1 tab PO QAM Take morning of surgery With a small sip of water, OTHERWISE NOTHING TO EAT OR DRINK AFTER MIDNIGHT: duloxetine 60 mg capsule,delayed release 60 mg PO QAM rabeprazole 20 mg tablet,delayed release (AcipHex) 20 mg PO QAM Take evening before surgery atorvastatin 40 mg tablet 40 mg PO HS duloxetine 30 mg capsule,delayed release 30 mg PO HS Other Notes If you have any questions please call us at [phone] or [phone] or [phone] or [phone]
--- NOTE | 2025-04-07 11:58 | Anesthesiology Consultation ---
Date of Service April 07, 2025 Assessment & Plan (1) Encounter for pre-operative examination: - Infectious disease screening: Per assessment on 04/07/25- No known recent infectious disease contacts or current infectious disease symptoms. - S/P Right knee arthroplasty (07/08/23): SAB at L4-5 (1 attempt) + regional at [facility] Chart Review Chart Review: Acceptable Risk for Surgery and Patient seen in Pre Admission Testing Teaching & Discussion Pre-Anesthesia Teaching/Discussion Notes: Instructed NPO after midnight before surgery,except medications with 15 cc of water. Medication instructions provided according to the PAT guidelines. History Surgery Operation Date: 05/03/25 09:15 Proposed Procedures p Right Revision Unicompartment Knee Arthroplasty to Right Total Knee Arthroplasty - Bebo Carty, Height/Weight Height: 5 ft 4 in Weight: 81 kg Allergies Allergy/AdvReac Type Severity Reaction Status Date / Time pseudoephedrine Allergy Intermediate "very Verified 03/31/25 09:05 [From Sudafed] rapid heart rate" tetracycline Allergy Unknown Unknown Verified 03/31/25 09:05 Medications Home Medications Medication Instructions Recorded Confirmed Last Taken atorvastatin 40 mg tablet 40 mg PO HS 02/20/21 03/31/25 10/10/24 duloxetine 30 mg capsule,delayed 30 mg PO HS 05/29/23 03/31/25 10/10/24 release duloxetine 60 mg capsule,delayed 60 mg PO QAM 05/29/23 03/31/25 10/11/24 release vit C 250 mg-vit E 90 mg-zinc 40 1 tab PO BID 05/29/23 03/31/25 10/11/24 mg-copper 1 vg-ycvkym-vtiomg capsule (PreserVision AREDS-2) amoxicillin 500 mg tablet 2,000 mg (4 x 500 mg) PO ONCE #4 04/10/24 03/31/25 Unknown tabs levothyroxine 100 mcg tablet 100 mcg PO 6XWK 10/11/24 03/31/25 10/11/24 cuqzxyup-jdu-cypvd ac 400 1 tab PO QAM 10/11/24 03/31/25 10/11/24 mcg-calcium carb 500 mg-vit K1 20 mcg tablet (Women's 50 Plus Multivitamin) rabeprazole 20 mg tablet,delayed 20 mg PO QAM 10/11/24 03/31/2525 release (AcipHex) krill 500 mg-omega 3 115 mg-dha 30 1 cap PO QAM 10/12/24 03/31/25 10/11/24 mg-epa 64 qg-fzutkzh-lujrk capsule (MegaRed [place]-3 Krill Oil) meloxicam 7.5 mg tablet 7.5 mg PO QAM PRN pain #30 tabs 02/10/25 03/31/25 Unkno wn Chondroitin Sulfate 1 cap PO QAM 04/07/25 04/07/25 Unknown Neuriva Plus Brain Performance 1 tab PO DAILY 04/07/25 04/07/25 Unknown Tylenol 1 tab PO DIRECTED 04/07/25 04/07/25 Unknown Past Medical History Medical History Depression GERD (gastroesophageal reflux disease) Controlled, stable per pt History of dysphagia Occasional "I need to drink a lot of water with my medications" Hyperlipidemia Hypothyroidism Macular dystrophy Osteoarthritis Sleep apnea Diagnosed with swine flu in 10/2024; since recovering, did not restart CPAP (currently non-compliant) Exercise / Class Metabolic Activity II 4-5 Yardwork/Stairs/Walk up hill (one FS: No CP, no SOB) Past Family History Family History Daughter Colorectal cancer, Onset Age: 24 Grandmother (Maternal) FHx: cancer inner ear area (unsure of exact site) Other No family history of adverse response to anesthesia No family history of bleeding disorder Past Surgical History Surgical History History of colonoscopy History of dilatation and curettage History of parathyroidectomy 2018; [facility] ("due to extreme depression they removed 3 of the 4") History of wisdom tooth extraction Status post right partial knee replacement (06/2023) SAB at L4-5 (1 attempt) + regional at [facility] Past Anesthesia History No Hx of Anesthesia Complications and No Family Hx of Anesthesia Complications History of PONV No Hx of PONV and No Hx of Motion Sickness Social History Smoking Status: Never smoker Do You Dip or Chew Tobacco: No Hx Alcohol Use: Yes Alcohol type: wine alcohol intake frequency: a few times a month Hx Substance Use: No substance use type: does not use Review of Systems Patient denies chest pain, shortness of breath, dyspnea on exertion, fever, chills, cough, wheezing, palpitations. Physical Exam Vital Signs BP 113/75 P 82 TEMP 98.6 SP02 96%RA RESP 18 Physical Full cervical extension range of motion. Full TMJ range of motion. TMD > 3.5 finger breaths Mallampati Score II Dentition: intact, + caps/crowns Lungs: clear throughout to auscultation Cardiac: regular rate and rhythm, no murmurs noted Spine: normal Carotid arteries: negative bruit Extremities: no LE edema Lab Results Anesthesia Preop Results Results Anesthesia Widget: WBC 5.56 K/ul (4.8-10.8) 04/07/25 Hgb 14.0 g/dl (12.0-16.0) 04/07/25 Hct 39.5 % (37.0-47.0) 04/07/25 Plt 262 K/uL (130-400) 04/07/25 Na 136 mmol/L (136-145) 04/05/25 K 4.2 mmol/L (3.5-5.1) 04/05/25 Cl 100 mmol/L (98-107) 04/05/25 CO2 29 mmol/L (21-32) 04/05/25 BUN 11 mg/dl (6-23) 04/05/25 Creat 0.65 mg/dl (0.6-1.2) 04/05/25 Glucose Level 97 mg/dl (70-99(Fasting)) 04/05/25 PT 10.7 Seconds (9.0-12.0) 04/07/25 PTT 26 Seconds (21-31) 04/07/25 INR 1.0 (0.9-1.1) 04/07/25 TSH 2.027 uIu/ml (0.300-4.500) 04/05/25 Free T4 1.06 ng/dl (0.61-1.60) 04/05/25 HA1c 5.8 % (4.5-5.6) H 04/05/25 Blood Type AB Positive 04/07/25 Antibody Screen NEGATIVE 04/07/25 Testing Electrocardiogram Date: 10/12/24 NSR at 90bpm. Diffuse minor NS STA. Chest X-Ray Date: 04/07/25 FINDINGS: Heart size and pulmonary vasculature are normal. Stable hyperexpanded lungs. No consolidation or pleural effusion. IMPRESSION: No acute findings. Echocardiogram Date: 10/12/24 LVEF 55-60%. LV wall motion is normal. Mild concentric LVH. RVSP is normal. No significant valvular disease.
[~2025-05-03 08:11] MED LIST changes: -ACETAMINOPHEN 500 MG TAB PO SCH; -DEXAMETHASONE SOD INJ 4 MG/ML VIAL ONE; -FAMOTIDINE 20 MG TAB PO SCH; -GABAPENTIN 300 MG CAP PO SCH; -LIDOCAINE 2% 2 ML VIAL/AMP(20MG/ML) INFIL ONE; -LR 500ML BOLUS, THEN 15ML/HR IV SCH; -LR 60ML/HR IV SCH; -MIDAZOLAM HCL 1 MG/ML 2ML VIAL ONE; -ONDANSETRON INJ 2 MG/ML 2 ML VIAL ONE; -ORTHO JOINT MIX INFIL SCH; -PROPOFOL IV EMULSION 10 MG/ML 20 ML VIAL IV ONE; -TRANEXAMIC ACID 1,000 MG **IV Intra-op IV SCH; -TRANEXAMIC ACID 1,000 MG **IV Pre-op IV SCH; -ceFAZolin 2000MG 2,000 MG/15 ML SYR IV SCH; -dexAMETHasone 4 MG TAB PO SCH; -fentaNYL citrate PF 100 MCG/2 ML VIAL ONE
[2025-05-03] MEDS: LR 60ML/HR IV SCH (08:57)
[2025-05-03] MEDS: LR 500ML BOLUS, THEN 15ML/HR IV SCH (08:57)
[2025-05-03] MEDS: ACETAMINOPHEN 500 MG TAB PO SCH ×2 (08:59→15:38)
[2025-05-03] MEDS: FAMOTIDINE 20 MG TAB PO SCH (08:59)
[2025-05-03] MEDS: GABAPENTIN 300 MG CAP PO SCH (08:59)
[2025-05-03] MEDS: dexAMETHasone**PF** 10 MG/ML VIAL IV SCH (09:00)
[2025-05-03] MEDS ORDERED: LIDOCAINE 2% 2 ML VIAL/AMP(20MG/ML) INFIL ONE (09:22)
[2025-05-03] MEDS ORDERED: ONDANSETRON INJ 2 MG/ML 2 ML VIAL ONE (09:23)
[2025-05-03] MEDS ORDERED: PROPOFOL IV EMULSION 10 MG/ML 20 ML VIAL IV ONE ×2 (09:23→12:08)
[2025-05-03] MEDS ORDERED: MIDAZOLAM HCL 1 MG/ML 2ML VIAL ONE (09:23)
[2025-05-03] MEDS ORDERED: ONDANSETRON INJ 2 MG/ML 2 ML VIAL IV PRN ×2 (09:50→15:10)
[2025-05-03] MEDS ORDERED: ATROPINE SULFATE 0.1 MG/ML 10ML SYR IV PRN (09:50)
--- NOTE | 2025-05-03 09:59 | History & Physical Bridge Note ---
Date of Service May 03, 2025 History & Physical Bridge Note I have examined the patient, reviewed the History & Physical and in the interval since the performance of the History & Physical I have noted the following changes of clinical significance: no changes noted
[2025-05-03] MEDS: TRANEXAMIC ACID 1,000 MG **IV Pre-op IV SCH (10:16)
[2025-05-03] MEDS ORDERED: KETAMINE HCL 10MG/ML SYR ONE (10:43)
[2025-05-03] MEDS: ROPIV 0.5% 246mg, Ketorolac 30mg, EPINEPHrine 0.5mg in NSS INFIL SCH (11:05)
[2025-05-03] MEDS: ORTHO JOINT ANESTHETIC ONE (11:06)
--- NOTE | 2025-05-03 12:05 | Operative Report ---
PG Post Operative Report Pre & Post Diagnosis Operation Date: 05/03/25 10:05 Pre-Op Diagnosis: Right Knee Osteoarthritis Status Post Unicompartment Knee Arthroplasty Post-Op Diagnosis: Right Knee Osteoarthritis Status Post Unicompartment Knee Arthroplasty I identified the patient and participated in the time-out.: Yes Procedure Operation Date: 05/03/25 10:05 Actual Procedures p Right Revision Unicompartment Knee Arthroplasty to Right Total Knee Arthroplasty(Right) - Bebo Carty DO Surgeon Bebo Carty DO Director Of Collections And Archives Jet Espino PA-C Estimated Blood Loss 30 Findings Consistent with Post-Op Diagnosis Specimens Right femoral and tibial bone Description of Procedure Implants used: I used a [employer] total knee arthroplasty system with a size 7 PS narrow femur, C tibia, 28 oval patella, and a size 14 CPS polyethylene bearing. All components were cemented in place with Biomet cement. Miya arrived [facility] for the above procedure. She was seen in the preoperative holding area and the operative extremity was identified and signed. She was given a preoperative antibiotic, TXA, a spinal anesthetic and an adductor nerve block. She was taken back to the operating room and laid on the table in supine position. She was given basic sedation. The operative knee was then prepped and draped in sterile fashion. A timeout was done, and the patient and the operative extremity was properly identified. A midline incision was made directly over the patella. Dissection was taken down to the extensor mechanism. A medial parapatellar arthrotomy was used. The medial retinaculum was released and the fat pad was mostly excised. The knee was flexed and the ACL, PCL, and meniscus were removed. The alignment of the knee replacement was assisted with a [employer] robotic knee. The femoral array was pinned in the distal femur and the tibial array was pinned using a percutaneous technique in the upper shaft of the tibia. The robot was appropriately calibrated and the structure of the knee was mapped out. The components were then manipulated on the screen to account for any malalignment and to assist in gap balancing. Once I was happy with the placement of the components on the screen, a distal femoral cutting guide was brought in place. The distal femur was then resected. Time was spent resecting around the previous medial femoral component. Some chisels were used as well. The a medial femoral component was then removed. The femur measured to be a size 7. A 4-in-1 cutting block was then put into place by the robot and 2 peg holes were drilled. The 4-in-1 cutting block was then impacted into place and anterior, posterior, and chamfer cuts were made. The cutting block was then brought down to the tibia and pinned into place. The proximal tibia was then resected. Time was spent resecting around the previous tibial component. Chisels were used as well. The tibial component was removed with the proximal tibial resection. The posterior aspect of the knee was then opened up and any additional meniscus fragments and osteophytes were removed. The tibia measured to be a size C. The tibial plate was then placed in the appropriate rotation and the tibia was drilled and punched. Trial components were then placed. The patella was then everted and 9 mm was resected off the posterior aspect of the patella. The patella measured to be a size 28 oval. 3 peg holes were then drilled. A trial patella was placed. A size 14 CPS polyethylene insert was then trialed. The knee was brought through a full range of motion and felt to be stable. Trial components were then removed. The surrounding soft tissues were injected with 100 cc of an orthopedic pain control cocktail. All components were then cemented into place with Biomet cement. The final polyethylene insert was then snapped into place. Once cement was dry the tourniquet was deflated. Hemostasis was obtained. A dilute betadyne lavage was then done for 3 minutes. The joint was then irrigated with normal saline solution. The medial parapatellar arthrotomy was then closed with #1 Vicryl suture. The skin was closed with 2-0 Vicryl, 3-0V lock suture, and Florence zip line. A soft compressive dressing was placed. She was then transferred to a hospital bed and taken to the postanesthesia care unit in stable condition. She tolerated the procedure well. Jet Espino PA-C, was present for the entire procedure. He was critical for patient positioning, prepping, draping, retraction exposure, wound closure and application of sterile dressing. I attest to the content of the Intraoperative Record and any orders documented therein. Any exceptions are noted below.
--- NOTE | 2025-05-03 12:54 | XRay Report ---
XR knee RT 1 or 2V routine HISTORY: 74 years-old Female Surgical Post Op COMPARISON: 02/22/2024 TECHNIQUE: 2 views of the right knee FINDINGS: Total bone arthroplasty with patellar resurfacing. Expected postoperative soft tissue swelling with d eep tissue air. No acute fracture, dislocation or unexpected opaque foreign body. IMPRESSION: Satisfactory alignment of the total joint arthroplasty. ACT 112: Negative or not required by law. The above report was generated using voice recognition software. It may contain grammatical, syntax o r spelling errors. Electronically signed by: Elliott Rhodes M.D. 05/03/2025 12:53 PM
--- NOTE | 2025-05-03 14:22 | Anesthesiology Progress Note ---
Date of Service May 03, 2025 Anesthesia Post Procedure Vital Signs Vital Signs: Temp Pulse Pulse Resp BP Pulse Ox O2 Del Method 05/03/25 14:05 63 13 158/76 H 95 Room Air 05/03/25 13:50 63 12 150/84 H 94 Room Air 05/03/25 13:35 63 14 133/95 94 Room Air 05/03/25 13:20 68 19 158/80 H 94 Room Air 05/03/25 13:05 63 13 159/78 H 97 Room Air 05/03/25 12:55 64 13 157/78 H 95 Room Air 05/03/25 12:45 36.4 C L 75 16 160/61 H 98 Room Air 05/03/25 12:35 67 14 151/86 H 100 Oxymask 05/03/25 12:26 36.0 C L 67 16 152/85 H 99 Oxymask 05/03/25 08:38 36.2 C L 72 20 153/88 H 98 Room Air O2 Flow Rate 05/03/25 14:05 05/03/25 13:50 05/03/25 13:35 05/03/25 13:20 05/03/25 13:05 05/03/25 12:55 05/03/25 12:45 05/03/25 12:35 6 05/03/25 12:26 6 05/03/25 08:38 Transfer of Care Handoff Completed per policy Notes Mental Status: alert / awake / arousable Patient Amnestic to Procedure: Yes Nausea / Vomiting: adequately controlled Pain: adequately controlled Airway Patency, RR, SpO2: stable & adequate BP & HR: stable & adequate Hydration State: stable & adequate Neuraxial Anesthesia: was administered and sensory block is resolving Anesthetic Complications: no major complications apparent and Pt Satisfied with anesthetic care
[2025-05-03] MEDS ORDERED: MAGNESIUM HYDROXIDE SUSP 30 ML UDC PO PRN (15:10)
[2025-05-03] MEDS ORDERED: METOCLOPRAMIDE HCL INJ 5 MG/ML 2 ML VIAL IV PRN (15:10)
[2025-05-03] MEDS ORDERED: NALOXONE HCL 0.4 MG/1 ML VIAL/CARP IV PRN (15:10)
[2025-05-03] MEDS ORDERED: HYDROmorphone INJ 0.5 MG/0.5 ML SYR IV PRN (15:10)
[2025-05-03] MEDS: SODIUM CHLORIDE 0.9% 1,000 ML IV SCH (15:38)
[2025-05-03] MEDS: KETOROLAC TROMETHAMINE 15 MG/ML VIAL IV SCH (15:39)
[2025-05-03] MEDS: SENNA 8.6 MG TAB PO SCH (20:06)
[2025-05-03] MEDS: DOCUSATE SODIUM 100 MG CAP PO SCH (20:06)
[2025-05-03] MEDS: ASPIRIN 81 MG ECTAB PO SCH (20:07)
[2025-05-03] MEDS: ATORVASTATIN 40 MG TAB PO SCH (20:08)
[2025-05-04 03:14] VITALS: RESP 16; TEMP 98.4
[2025-05-04] MEDS: LEVOTHYROXINE SODIUM 100 MCG TABLET PO SCH (05:06)
[2025-05-04 07:16] VITALS: BP 157/80; PULSE 72; O2SAT 98
[2025-05-04] MEDS: MULTIVITAMIN TAB PO SCH (08:16)
--- NOTE | 2025-05-04 09:02 | Orthopedic Progress Note ---
Date of Service May 04, 2025 Assessment & Plan (1) Status post total right knee replacement: * Continue Current Treatment * Disposition: home * Daily treatment: Physical Therapy/ Occupational Therapy per protocol * Weight bearing status: WBAT * Continue to monitor for ABLA * Pain control * DVT prophylaxis, ASA * Office/hospital f/u 2 weeks for progress check and staple/suture removal * Plan for discharge today pending PT/OT clearance Subjective .Active Problems: S/p right revision TKA POD 1 74 y/o female s/p right revision unicompartmental to TKA. Doing well overall, pain managed and improved function. Denies fever/chills, chest pain/SOB, naus ea/vomiting. Otherwise no complaints. Review of Systems All systems reviewed & are unremarkable except as noted in HPI & below. Physical Exam . * General: Alert and oriented, no acute distress * Constitutional: well-developed, well-nourished. * Respiratory: Normal respiratory effort, no distress * Gastrointestinal: No tenderness to palpation, no rigidity or guarding. * Skin: No rash or lesion. * Neurologic: Grossly normal * Musculoskeletal: right knee surgical dressing CDI, not removed for exam. Ot herwise no obvious deformity or overlying skin changes RLE. Diffuse TTP distal thigh and knee region. Otherwise no specific tenderness of proximal thigh, lower leg, foot/ankle. AROM knee flexion 100 degrees. AROM foot/ankle intact. Sensation intact plantar/dorsal foot. Brisk capillary refill. Results & Data Results & Data Laboratory Results . Diagnostic Findings . Knee X-Ray 05/03/25 12:27 XR knee RT 1 or 2V routine HISTORY: 74 years-old Female Surgical Post Op COMPARISON: 02/22/2024 TECHNIQUE: 2 views of the right knee FINDINGS: Total bone arthroplasty with patellar resurfacing. Expected postoperative soft tissue swelling with deep tissue air. No acute fracture, dislocation or unexpected opaque foreign body. IMPRESSION: Satisfactory alignment of the total joint arthroplasty. ACT 112: Negative or not required by law. The above report was generated using voice recognition software. It may contain grammatical, syntax or spelling errors. Electronically signed by: Elliott Rhodes M.D. 05/03/2025 12:53 PM PG Care Time/CCT Total # of Minutes Spent Total Time Spent with Patient: Total time spent is greater than 50% in coordination of care (as documented) at patient's floor/unit and/or counseling patient: Coding Level of Care Code 01988 Post Operative Follow-Up Diagnoses Status post total right knee replacement Z96.651
== END 2025-05-04 11:45 | disposition home health service (06) | DRG 468 ==
LOC: ASU 08:11 → PACUINP 12:27 → 3W 15:07
DX: G47.30 Sleep apnea, unspecified; M17.11 Unilateral primary osteoarthritis, right knee; E03.9 Hypothyroidism, unspecified; K21.9 Gastro-esophageal reflux disease without esophagitis; Z96.651 Presence of right artificial knee joint; F32.A Depression, unspecified; E78.5 Hyperlipidemia, unspecified; H35.50 Unspecified hereditary retinal dystrophy